=== PATIENT | male | born 1945 | race Caucasian/White ===

== ENCOUNTER 2017-05-21 16:29 | Outpatient (CLI) | payer MEDICARE ==
[~2017-05-21 16:29] MED LIST: Iopamidol 370 76% 100 ML VIAL ONE
--- NOTE | 2017-05-21 17:43 | CT ---
CT ANGIOGRAM NECK 05/21/17 COMPARISON: None. HISTORY: Carotid arterial disease seen on recent ultrasound examination. TECHNIQUE: Serial axial CT imaging is obtained at 1.25 mm intervals from the skull base through the lung apices with IV contrast using a CT angiogram protocol. Coronal and sagittal 3D reformatted imaging obtained. FINDINGS: Limited assessment of the brain parenchyma appears unremarkable. There is near complete opacification of the maxillary sinus on the right and scattered areas of mucosal thickening within the left maxill marcia sinus and imaged bilateral ethmoid air cells. The retroantral fat and parapharyngeal fat is clear bilaterally. The parotid and submandibular glands appear within normal limits. The tonsillar pillars, thyroid gland, cricoid cartilage, thyroid cartilage, level of the glottis, epi glottis and pre-epiglottic fat appear within normal limits. Anterior discectomy and fusion hardware is present at C5-6/C6-7. No lymphadenopathy is seen within the neck. There is a subcentimeter pleural based nodule within the right upper lobe anteriorly on image 1 measu ring 6-7 mm, incompletely imaged. There are mild central lobular and paraseptal emphysematous changes within the right lung apex. There is scattered atherosclerotic calcification of the aortic arch. A bovine arch is noted. No hemodynamically significant stenosis is seen at the origin of the left com mon carotid artery, the innominate artery, the right subclavian artery, the right common carotid carmelina ry, or the left subclavian artery. There is mild stenosis at the origin of the right vertebral artery with partially calcified plaque. T here is mild stenosis at the origin of the right vertebral artery on the basis of noncalcified plaque . Bilateral vertebral arteries appear grossly unremarkable otherwise. The left common carotid artery is grossly unremarkable in course and contour. There is severe stenosis approaching occlusion at the origin of the left internal carotid artery on t he basis of prominent partially calcified atherosclerotic plaque. The stenosis is difficult to measur e secondary to the degree of atherosclerotic plaque but is in the 90% range. The internal carotid art kary distal to this to the level of the skull base is markedly attenuated. The petrous and supraclinoi d segments of the left internal carotid artery are markedly attenuated as well. The critical stenosis approaching occlusion at the origin of the left internal carotid artery measure s at least 1.4 cm in length. The right common carotid artery is patent. The external carotid artery on the right appears unremarka ble. There is marked atherosclerotic calcified plaque at the origin of the left internal carotid artery. A t the level of the origin, there is at least 50-60% stenosis. Just beyond the origin of the internal carotid artery, on the basis of bulky markedly calcified plaque, there is a segment measuring 1.5 cm in length where there is critical stenosis approaching occlusion involving the proximal right ICA, be st seen on axial image 151 and sagittal image 32. The internal carotid artery on the right distal to this is patent. There is degenerative change involving the atlantoaxial interspace. There is no worrisome lytic or bl astic bone lesions. IMPRESSION: 1. There is severe atherosclerotic disease involving the proximal internal carotid arteries bila terally with proximal focal areas of critical stenosis approaching occlusion involving the origin of both the left and the right internal carotid artery. 2. 6-7 mm pulmonary nodule in right upper lobe. Followup CT examination of the chest is recommen ded for full assessment. Code T POS: [facility]
== END 2017-05-21 16:30 | disposition home or self-care (01) ==
LOC: CT 16:29
PROVIDERS: ATTEND Thoracic Surgery (Cardiothoracic Vascular Surgery)
DX: I77.9 Disorder of arteries and arterioles, unspecified (principal); I65.23 Occlusion and stenosis of bilateral carotid arteries; R91.1 Solitary pulmonary nodule
CPT/HCPCS: 70498

== ENCOUNTER 2017-06-09 05:24 | Inpatient (IN) | payer MEDICARE ==
[2017-06-09] MEDS ORDERED: Levofloxacin 500 mg/D5W 100 ml Premix Bag ONE (06:19)
[2017-06-09] MEDS ORDERED: Clindamycin/D5W 900 mg/50 ml Premix Bag ONE (06:19)
[2017-06-09] MEDS ORDERED: Fentanyl 250 MCG/5 ML VIAL ONE ×2 (06:30→07:20)
[2017-06-09] MEDS ORDERED: Nitroglycerin 50 MG/250 ML BOT 0 ML ONE (06:30)
[2017-06-09] MEDS ORDERED: Bupivacaine/Epinephrine 0.25% 30 ML VIAL ONE (06:34)
[2017-06-09] MEDS ORDERED: Heparin 5,000 UNITS/ML VIAL ONE (06:35)
[2017-06-09] MEDS ORDERED: Protamine Sulfate 50 MG/5 ML VIAL ONE (06:35)
[2017-06-09 06:43] LABS: #Basophils 0.1 thou/uL (0.0-0.2); #Eosinphils 0.3 thou/uL (0.0-0.7); #Lymphocytes 1.7 thou/uL (1.20-3.40); #Monocytes 0.7 thou/uL (0.11-0.59); #Neutrophils 3.4 thou/uL (1.40-6.50); %Eosinophils 4.8 % (0.0-10.0); %Lymphocytes 27.6 % (21.0-51.0); %Monocytes 11.3 % (0.0-10.0); %Neutrophils 55.4 % (42.0-75.0); Hemoglobin 16.5 g/dL (14.0-18.0); Mean Corpuscular HGB CONC 33.3 g/dL (32.0-36.0); Mean Platelet Volume 7.8 fL (7.4-10.4); Platelet Count 195 thou/uL (130-400); RBC Distribution Width 11.3 % (11.5-14.5); Red Blood Cell (RBC) Count 5.15 mill/uL (4.70-6.10); White Blood Cell (WBC) Count 6.2 thou/uL (4.8-10.8)
[2017-06-09 07:01] LABS: Anion Gap 14 mmol/L (10-20); BUN (Urea Nitrogen) 12 mg/dL (8.4-25.7); Calc. Creatinine Clearance 99 mL/min (70-130); Calcium 9.9 mg/dL (7.8-10.44); Carbon Dioxide 20 mmol/L (23-31); Chloride 108 mmol/L (98-107); Estimated GFR-MDRD 89; Glucose 109 mg/dL (83-110); Potassium 4.3 mmol/L (3.5-5.1); Sodium 138 mmol/L (136-145)
[2017-06-09] MEDS ORDERED: ePHEDrine/0.9% NaCl/PF SYRINGE 50 mg/10 ml ONE ×2 (08:29→17:10)
[2017-06-09] MEDS ORDERED: Phenylephrine HCL 10 MG/ML VIAL ONE (08:29)
[2017-06-09] MEDS ORDERED: Ondansetron HCl/PF 4 MG/2 ML Vial IVP PRN ×2 (10:12→10:30)
[2017-06-09] MEDS ORDERED: Promethazine HCl 25 MG/ML VIAL IM/IV PRN (10:12)
[2017-06-09] MEDS ORDERED: Nitroglycerin 50 MG/250 ML BOT 250 ML IVPB PRN (10:30)
[2017-06-09] MEDS ORDERED: HYDROcodone/Acetaminophen 5/325 mg Tablet PO PRN (10:30)
[2017-06-09] MEDS ORDERED: Acetaminophen 325 MG TAB PO PRN (10:30)
[2017-06-09] MEDS ORDERED: Fentanyl 100 MCG/2 ML VIAL SLOW IVP PRN ×2 (10:30)
[2017-06-09] MEDS ORDERED: Phenylephrine 10 MG/NS 250 ML 250 ML IVPB PRN (10:30)
[2017-06-09] MEDS ORDERED: Promethazine HCl 25 MG/ML VIAL IM PRN (10:30)
--- NOTE | 2017-06-09 10:40 | OP ---
DATE OF PROCEDURE: 06/09/2017 PREOPERATIVE DIAGNOSIS: Critical carotid stenosis. POSTOPERATIVE DIAGNOSIS: Critical carotid stenosis. PROCEDURE: Right carotid endarterectomy with bovine patch angioplasty. SURGEON: Dr. Sharma. ANESTHESIA: General. ESTIMATED BLOOD LOSS: Less than 100 mL. PROCEDURE IN DETAIL: After adequate anesthesia had been obtained, the patient was prepped and draped . Ultrasound had been used to localize the carotid bulb following which skin incision was made. Com mon internal and external carotid arteries were isolated. The patient was given 7500 units of hepari n with good ACT level, arteriotomy performed, and a 12-[place] shunt was placed. Endarterectomy was t hen performed. There was nice tapering distally and after removing and irrigating any loose debris, the bovine patch was secured with a running 6-0 Prolene suture. Prior to completing the suture line, shunt was removed, vessels back flushed, forward flushed and the area thoroughly irrigated again wit h heparinized saline. Suture line was completed, flow restored up the external and then internal car otid artery. Protamine was given to partially reverse the heparin and Surgicel was used on the sutur e line and after obtaining good hemostasis, the wound was irrigated and closed in layers.
[2017-06-09] MEDS: HYDROcodone/Acetaminophen 5/325 mg Tablet PO PRN ×3 (10:42→23:56)
[2017-06-09] MEDS: Sodium Chloride 0.9% 1,000 ML IV SCH (10:49)
[2017-06-09 10:57] VITALS: BMI 28.3
[2017-06-09] MEDS ORDERED: FLU VACC TS2017-18 (>65YR) 0.5 ML SYRINGE IM ONE (11:15)
[2017-06-09] MEDS: Clindamycin/D5W 900 MG in Premix Bag 1 BAG IVPB SCH ×3 (13:14→23:55)
[2017-06-09] MEDS ORDERED: Lidocaine 1% PF 5 ML VIAL ONE (17:10)
[2017-06-09] MEDS ORDERED: PHENYLEPHRINE-NS 100 MCG/ML 10 ML SYRINGE ONE (17:10)
[2017-06-09] MEDS ORDERED: Glycopyrrolate 0.2 MG/ML 5 ML SYRINGE ONE (17:10)
[2017-06-09] MEDS ORDERED: Propofol 200 MG/20 ML VIAL ONE (17:10)
[2017-06-09] MEDS ORDERED: Heparin 10,000 UNITS/ 10 ML VIAL ONE (17:10)
[2017-06-09] MEDS ORDERED: Dexamethasone 20 MG/5 ML VIAL ONE (17:10)
[2017-06-09] MEDS ORDERED: Ondansetron HCl/PF 4 MG/2 ML Vial ONE (17:10)
[2017-06-09] MEDS ORDERED: Tamsulosin HCl 0.4 MG CAP PO SCH (21:00)
[2017-06-10] MEDS: Clindamycin/D5W 900 MG in Premix Bag 1 BAG IVPB SCH (06:03)
[2017-06-10] MEDS: HYDROcodone/Acetaminophen 5/325 mg Tablet PO PRN (06:08)
[2017-06-10] MEDS: Sodium Chloride 0.9% 1,000 ML IV SCH (06:13)
--- NOTE | 2017-06-10 07:11 | DIS ---
HOSPITAL COURSE: The patient was admitted where he underwent elective right carotid endarterectomy. Postoperative course was uneventful. His vital signs were stable. His neck incision looked good. His neurologic exam was baseline. He will be discharged home today to resume all of his home medicat ions with no prescriptions. He will follow up with me in 2-3 weeks. He does need his left carotid t reated surgically and this will be scheduled when the patient desires. Discharge and followup instru ctions given.
[2017-06-10 07:22] VITALS: TEMP 97.7
[2017-06-10] MEDS ORDERED: Amlodipine 5 MG TAB PO SCH (09:00)
== END 2017-06-10 08:15 | disposition home or self-care (01) | DRG 39 ==
LOC: SURG A 05:24 → CCU 09:51
PROVIDERS: ADMIT Thoracic Surgery (Cardiothoracic Vascular Surgery); ATTEND Thoracic Surgery (Cardiothoracic Vascular Surgery)
PROC: 03CH0ZZ Extirpation of Matter from Right Common Carotid Artery, Open Approach (ICD-10-PCS; principal; 2017-06-09)
PROC: 03UH0KZ Supplement Right Common Carotid Artery with Nonautologous Tissue Substitute, Open Approach (ICD-10-PCS; 2017-06-09)
DX: I65.29 Occlusion and stenosis of unspecified carotid artery (principal); E78.5 Hyperlipidemia, unspecified; I10 Essential (primary) hypertension; I25.10 Atherosclerotic heart disease of native coronary artery without angina pectoris; F17.210 Nicotine dependence, cigarettes, uncomplicated
CPT/HCPCS: 36415; 80048; 85025; 93005; 93010; J1100; J1642; J1644; J1956; J2001; J2370; J2405; J2704; J2720; J3010; J3490

== ENCOUNTER 2017-07-13 08:49 | Inpatient (IN) | payer MEDICARE ==
[2017-07-13] MEDS ORDERED: Protamine Sulfate 50 MG/5 ML VIAL ONE ×3 (11:00→11:12)
[2017-07-13] MEDS ORDERED: Heparin 5,000 UNITS/ML VIAL ONE ×2 (11:00)
[2017-07-13] MEDS ORDERED: Midazolam HCl 2 mg/2 ml Vial ONE (11:04)
[2017-07-13] MEDS ORDERED: Fentanyl 250 MCG/5 ML VIAL ONE ×2 (11:04→11:41)
[2017-07-13] MEDS ORDERED: Nitroglycerin 50 MG/250 ML BOT 0 ML ONE (11:05)
[2017-07-13] MEDS ORDERED: PHENYLEPHRINE-NS 100 MCG/ML 10 ML SYRINGE ONE ×2 (11:06→15:47)
[2017-07-13] MEDS ORDERED: Levofloxacin 500 mg/D5W 100 ml Premix Bag ONE (11:08)
[2017-07-13] MEDS ORDERED: Clindamycin/D5W 900 mg/50 ml Premix Bag ONE (11:08)
[2017-07-13] MEDS ORDERED: Phenylephrine HCL 10 MG/ML VIAL ONE (11:09)
[2017-07-13] MEDS ORDERED: Bupivacaine/Epinephrine 0.25% 30 ML VIAL ONE (11:11)
[2017-07-13 11:17] LABS: #Basophils 0.1 thou/uL (0.0-0.2); #Eosinphils 0.3 thou/uL (0.0-0.7); #Lymphocytes 1.8 thou/uL (1.20-3.40); #Monocytes 0.6 thou/uL (0.11-0.59); #Neutrophils 4.5 thou/uL (1.40-6.50); %Basophils 0.9 % (0.0-1.0); %Eosinophils 4.4 % (0.0-10.0); %Lymphocytes 24.3 % (21.0-51.0); %Monocytes 8.1 % (0.0-10.0); %Neutrophils 62.3 % (42.0-75.0); Hemoglobin 16.4 g/dL (14.0-18.0); Mean Corpuscular HGB CONC 32.9 g/dL (32.0-36.0); Mean Corpuscular Hemoglobin 31.3 pg (27.0-31.0); Mean Corpuscular Volume 95.2 fl (80.0-94.0); Mean Platelet Volume 7.3 fL (7.4-10.4); Platelet Count 240 thou/uL (130-400); RBC Distribution Width 11.2 % (11.5-14.5); Red Blood Cell (RBC) Count 5.23 mill/uL (4.70-6.10); White Blood Cell (WBC) Count 7.2 thou/uL (4.8-10.8)
[2017-07-13 11:36] LABS: Anion Gap 14 mmol/L (10-20); BUN (Urea Nitrogen) 11 mg/dL (8.4-25.7); Calc. Creatinine Clearance 95 mL/min (70-130); Carbon Dioxide 23 mmol/L (23-31); Chloride 105 mmol/L (98-107); Estimated GFR-MDRD Greater than 90; Glucose 97 mg/dL (83-110); Potassium 4.8 mmol/L (3.5-5.1); Sodium 137 mmol/L (136-145)
--- NOTE | 2017-07-13 13:35 | OP ---
DATE OF PROCEDURE: 07/13/2017 PREOPERATIVE DIAGNOSIS: Critical left internal carotid artery stenosis. PROCEDURE: Left carotid endarterectomy with bovine patch angioplasty. SURGEON: Dr. Karl Sharma ANESTHESIA: General. ESTIMATED BLOOD LOSS: Less than 100. PROCEDURE IN DETAIL: After adequate anesthesia had been obtained, ultrasound was used to identify th e carotid bulb. Following prepping and draping, incision was made. Common internal and external car otid arteries were identified. Internal carotid artery was small as anticipated. After 7500 units o f heparin had circulated, clamps were applied, arteriotomy performed, and a 10-Lao shunt was place d. There was good back bleeding from the internal carotid artery. Endarterectomy was then performed with satisfactory tapering distally. Bovine patch was used to close the arteriotomy with a running 7-0 Prolene suture. Prior to completing the suture line, the shunt was removed, vessels back flushed and forward flushed and the lumen of the carotid irrigated thoroughly with heparin saline. Flow was then restored up the external and then internal carotid artery. Heparin was partially reversed with protamine and after obtaining good hemostasis, the wound was irrigated and closed in layers. The pa tient is to be taken to the recovery room in guarded condition.
[2017-07-13] MEDS ORDERED: Ondansetron HCl/PF 4 MG/2 ML Vial IVP PRN ×3 (13:51→15:31)
[2017-07-13] MEDS ORDERED: Promethazine HCl 25 MG/ML VIAL SLOW IVP PRN ×2 (13:51)
[2017-07-13] MEDS ORDERED: Promethazine HCl 25 MG/ML VIAL IM PRN ×2 (13:51)
[2017-07-13] MEDS ORDERED: Sodium Chloride 0.9% 1,000 ML IV SCH (15:31)
[2017-07-13] MEDS ORDERED: Fentanyl 100 MCG/2 ML VIAL SLOW IVP PRN (15:31)
[2017-07-13] MEDS ORDERED: Acetaminophen 325 MG TAB PO PRN (15:31)
[2017-07-13] MEDS ORDERED: hydrALAZINE 20 MG/ML VIAL SLOW IVP PRN (15:31)
[2017-07-13] MEDS ORDERED: HYDROcodone/Acetaminophen 5/325 mg Tablet PO PRN (15:31)
[2017-07-13] MEDS ORDERED: DOPamine 400 MG/D5W 250 ML 250 ML IVPB PRN (15:31)
[2017-07-13] MEDS ORDERED: niCARdipine HCl 25 MG in Sodium Chloride 0.9% 250 ML 240 ML IVPB PRN (15:31)
[2017-07-13 15:32] VITALS: BMI 25.9
[2017-07-13] MEDS ORDERED: ePHEDrine/0.9% NaCl/PF SYRINGE 50 mg/10 ml ONE (15:47)
[2017-07-13] MEDS ORDERED: PROPOFOL 200 MG/20 ML VIAL ONE (15:47)
[2017-07-13] MEDS ORDERED: Lidocaine 1% PF 5 ML VIAL ONE (15:47)
[2017-07-13] MEDS ORDERED: Ondansetron HCl/PF 4 MG/2 ML Vial ONE (15:47)
[2017-07-13] MEDS ORDERED: Heparin 10,000 UNITS/ 10 ML VIAL ONE (15:47)
[2017-07-13] MEDS ORDERED: Glycopyrrolate 0.2 MG/ML 5 ML SYRINGE ONE (15:47)
[2017-07-13] MEDS: Amlodipine 5 MG TAB PO SCH (20:20)
[2017-07-13] MEDS: HYDROcodone/Acetaminophen 5/325 mg Tablet PO PRN (20:20)
[2017-07-13 20:21] VITALS: BP 124/58
[2017-07-13] MEDS ORDERED: Tamsulosin HCl 0.4 MG CAP PO SCH (21:00)
[2017-07-14] MEDS: HYDROcodone/Acetaminophen 5/325 mg Tablet PO PRN ×3 (00:11→08:41)
--- NOTE | 2017-07-14 06:22 | DIS ---
HOSPITAL COURSE: The patient was admitted and underwent an elective left carotid endarterectomy. Hi s internal carotid was small as anticipated. Postoperatively, he had some mild neck swelling, but ne urologically was intact. He required placement of a Valles catheter on the night of surgery with an 8 00 mL residual. He has a history of being discharged after a previous carotid endarterectomy, requir ing a Valles catheter placement the night of admission with a reported 3000 mL urine output according to his daughter. In any event, he has been seen by Dr. Snow and is to be scheduled for prostate surgery at some point in the future. He will be discharged home with his Valles catheter and I have asked him to follow up with Dr. Snow next week and to continue his medications from home includi ng his Flomax. Discharge and follow up instructions have been given.
[2017-07-14] MEDS: Amlodipine 5 MG TAB PO SCH (08:38)
[2017-07-14] MEDS ORDERED: Clopidogrel Bisulfate 75 MG TAB PO SCH (09:00)
[2017-07-14] MEDS ORDERED: Aspirin 325 mg Enteric Coated Tablet PO SCH (09:00)
[2017-07-14] MEDS ORDERED: Tamsulosin HCl 0.4 MG CAP PO SCH (09:00)
[2017-07-14] MEDS ORDERED: Finasteride 5 MG TAB PO SCH (09:00)
[2017-07-14 09:13] VITALS: TEMP 97.9
== END 2017-07-14 09:00 | disposition home or self-care (01) | DRG 39 ==
LOC: SURG A 10:50 → CCU 15:11
PROVIDERS: ADMIT Thoracic Surgery (Cardiothoracic Vascular Surgery); ATTEND Thoracic Surgery (Cardiothoracic Vascular Surgery)
PROC: 03CL0ZZ Extirpation of Matter from Left Internal Carotid Artery, Open Approach (ICD-10-PCS; principal; 2017-07-13)
PROC: 03UL0KZ Supplement Left Internal Carotid Artery with Nonautologous Tissue Substitute, Open Approach (ICD-10-PCS; 2017-07-13)
DX: I65.22 Occlusion and stenosis of left carotid artery (principal); E78.5 Hyperlipidemia, unspecified; I10 Essential (primary) hypertension; I25.10 Atherosclerotic heart disease of native coronary artery without angina pectoris; F17.210 Nicotine dependence, cigarettes, uncomplicated; Z88.1 Allergy status to other antibiotic agents; Z88.0 Allergy status to penicillin; Z88.2 Allergy status to sulfonamides; Z79.02 Long term (current) use of antithrombotics/antiplatelets; Z79.82 Long term (current) use of aspirin; Z79.899 Other long term (current) drug therapy
CPT/HCPCS: 36415; 80048; 85025; J1642; J1644; J1956; J2001; J2250; J2370; J2405; J2704; J2720; J3010; J3490

== ENCOUNTER 2017-08-17 13:40 | Observation (INO) | payer MEDICARE ==
[2017-08-17 14:12] LABS: #Eosinphils 0.1 thou/uL (0.0-0.7); #Lymphocytes 1.2 thou/uL (1.20-3.40); #Monocytes 0.5 thou/uL (0.11-0.59); #Neutrophils 3.6 thou/uL (1.40-6.50); %Basophils 0.9 % (0.0-1.0); %Eosinophils 2.2 % (0.0-10.0); %Monocytes 8.4 % (0.0-10.0); %Neutrophils 66.5 % (42.0-75.0); Hemoglobin 14.3 g/dL (14.0-18.0); Mean Corpuscular HGB CONC 34.6 g/dL (32.0-36.0); Mean Corpuscular Hemoglobin 31.9 pg (27.0-31.0); Mean Corpuscular Volume 92.1 fl (80.0-94.0); Mean Platelet Volume 6.7 fL (7.4-10.4); Platelet Count 246 thou/uL (130-400); RBC Distribution Width 11.3 % (11.5-14.5); Red Blood Cell (RBC) Count 4.48 mill/uL (4.70-6.10); White Blood Cell (WBC) Count 5.4 thou/uL (4.8-10.8)
[2017-08-17 14:34] LABS: ALT (SGPT) 12 U/L (8-55); AST (SGOT) 12 U/L (5-34); Albumin 3.9 g/dL (3.4-4.8); Alkaline Phosphatase 57 U/L (40-150); Anion Gap 7 mmol/L (10-20); BUN (Urea Nitrogen) 9 mg/dL (8.4-25.7); Bilirubin, Total 0.4 mg/dL (0.2-1.2); CK (CPK) 64 U/L (30-200); Calc. Creatinine Clearance 0 mL/min (70-130); Calcium 9.4 mg/dL (7.8-10.44); Carbon Dioxide 26 mmol/L (23-31); Chloride 107 mmol/L (98-107); Estimated GFR-MDRD Greater than 90; Globulin 2.6 g/dL (2.4-3.5); Glucose 170 mg/dL (83-110); Potassium 3.6 mmol/L (3.5-5.1); Protein, Total 6.5 g/dL (5.8-8.1); Sodium 136 mmol/L (136-145)
[2017-08-17 14:43] LABS: CKMB 1.3 ng/mL (0-6.6); Troponin I Less than 0.010 ng/mL (< 0.028)
[2017-08-17 15:00] LABS: Magnesium 2.2 mg/dL (1.6-2.6)
--- NOTE | 2017-08-17 15:17 | RAD ---
CHEST 1 VIEW: HISTORY: Chest pain. FINDINGS: Cardiac silhouette and pulmonary vasculature are unremarkable. Mediastinum is midline. There is no confluent airspace consolidation or evidence of pneumothorax. Postoperative changes cervical spine. IMPRESSION: No active cardiopulmonary abnormalities are demonstrated. POS: [facility]
[2017-08-17 18:11] LABS: Bilirubin Negative (Negative); Blood, Urine Large (Negative); Clarity CLOUDY (Clear); Glucose, Urine (Dipstick) Negative (Negative); Leukocyte Moderate (Negative); Nitrite Negative (Negative); Protein, Urine (Dipstick) 30 mg/dL (Neg-Trace); Specific Gravity, Urine 1.009 (1.002-1.036); Urobilinogen 0.2 mg/dL (0.2-1.0)
[2017-08-17 18:12] LABS: Bacteria/HPF None Seen HPF (None Seen); Hyaline Casts/LPF 0-3 HYALINE CAST LPF (0-3 Hyaline); Squamous Epithelial 0-3 HPF (0-3)
[2017-08-17 18:25] LABS: RBC/HPF GREATER THAN 50-TNTC HPF (0-3); Yeast-All Forms None Seen HPF (None Seen)
[2017-08-17 19:04] LABS: Troponin I Less than 0.010 ng/mL (< 0.028)
[2017-08-17] MEDS ORDERED: HYDROcodone/Acetaminophen 10/325 mg Tablet ONE (19:08)
[2017-08-17] MEDS ORDERED: Acetaminophen 325 MG TAB PO PRN (19:53)
[2017-08-17] MEDS ORDERED: Nitroglycerin 0.4 MG TAB (25 Tab Bottle) PO PRN (19:53)
[2017-08-17] MEDS ORDERED: Acetaminophen 650 MG Suppository PR PRN (19:53)
[2017-08-17] MEDS ORDERED: Ondansetron ODT 4 MG TAB PO PRN (19:53)
[2017-08-17] MEDS ORDERED: Ondansetron HCl/PF 4 MG/2 ML Vial IVP PRN (19:53)
[2017-08-17] MEDS ORDERED: Bisacodyl 5 MG TAB PO PRN (19:53)
[2017-08-17] MEDS ORDERED: Senokot 8.6 MG TAB PO PRN (19:53)
[2017-08-17 20:00] VITALS: BMI 25.8
[2017-08-17] MEDS ORDERED: hydrALAZINE 20 MG/ML VIAL SLOW IVP PRN (20:20)
[2017-08-17] MEDS ORDERED: Amlodipine 5 MG TAB PO SCH (21:00)
[2017-08-17] MEDS ORDERED: Rosuvastatin 10 MG TAB PO SCH (21:00)
[2017-08-17] MEDS ORDERED: Vancomycin HCl 1.25 GM in Sodium Chloride 0.9% 250 ML 250 ML IVPB SCH (21:00)
[2017-08-17] MEDS: Docusate 100 MG CAP PO SCH (21:36)
[2017-08-17] MEDS: Famotidine 20 MG TAB PO SCH (21:37)
[2017-08-17 22:12] LABS: Troponin I Less than 0.010 ng/mL (< 0.028)
--- NOTE | 2017-08-18 03:11 | HP ---
PRIMARY CARE PHYSICIAN: Sony Mclain M.D. PRIMARY SURVEYOR HYDROGRAPHIC: Dr. Lyn. CHIEF COMPLAINT: Severe dyspnea and feeling sense of impending doom. HISTORY OF PRESENT ILLNESS: This is a 72-year-old white male with a known history of coronary artery disease with previous stents and peripheral vascular disease with some bilateral carotid endarterect omies in the last few months and benign prostatic hyperplasia with a TURP done 2 weeks ago. Patient reports he has felt kind of bad ever since the TURP, he stated that he has had nausea, dry mouth, con stipation, and felt bad every time he would take his Ditropan, which he took 3 times a day. Patient also had some episodes where he would get. He was started to get burning, stinging, and tingling in his bilateral feet up to the knees this would be fall. He would then check his blood pressure would be high. He would try and take some amlodipine, recheck it and would still be high, this will make h im very worried. He was started feeling worse and worse and get severe dyspnea. This happened again this morning and he had a sense of an impending doom. No actual chest pain but definitely some ches t tightness, so he came into the emergency room. In the ambulance, he did have elevated blood pressu res as well as in the emergency room here. This improved with some 1 or 2 nitro paste to his chest. Blood pressure went from 191 to 150 systolic. Patient is accompanied to the emergency room by his Rin osorio who is a p.r.n. nurse in [place]. PAST MEDICAL HISTORY: 1. Hypertension. 2. Hypercholesterolemia. 3. Benign prostatic hyperplasia. 4. Childhood asthma. 5. Coronary artery disease. 6. Peripheral vascular disease with bilateral carotid stenosis. PAST SURGICAL HISTORY: 1. Carotid stents x2 in 2015. 2. Bilateral carotid endarterectomy. 3. TURP. 4. Right shoulder surgery. 5. Spinal surgery of the cervical and lumbar spine. PSYCHIATRIC HISTORY: No previous psychiatric history. He has never had anxiety or panic attacks in the past. SOCIAL HISTORY: No alcohol or illicit drug use. He does report smoking 1 pack per day and that is a bout 2-3 times a day. ALLERGIES: 1. PENICILLIN causes lip swelling and rash. 2. SULFA. 3. TETRACYCLINE causes a rash and swelling. CURRENT MEDICATIONS: 1. Amlodipine 5 mg daily. 2. Coenzyme Q10 of 100 mg daily. 3. Clopidogrel 75 mg daily. 4. Crestor 10 mg daily. 5. Flomax 0.4 mg daily. 6. Aspirin 81 mg daily. 7. [place] as needed. 8. Oxybutynin 5 mg 3 times a day. FAMILY HISTORY: Father at 45 years old with heart disease. Mother at 70 years old diagnosed with cancer. REVIEW OF SYSTEMS: Constitutional: No fevers or chills. Eyes: No double vision or blurred vision. ENT: He has had some congestion, drainage, and sore throat ever since his TURP surgery. Cardiovas cular: See HPI. Pulmonary: Intermittent cough, dry, and shortness of breath as per HPI, none curre ntly. Gastrointestinal: No abdominal pain. He had some nausea every time he takes the Ditropan, bu t no vomiting, no diarrhea. He has had significant constipation and had a large very hard bowel move ment this morning. No blood or mucus. Genitourinary: He has a Valles in place. His daughter has be en flushing this and has occluded previously, but not today. It has been flowing well; however, sinc e yesterday, it started to have a pink-tinged today, it has some blood in it. No clots visible. Mus culoskeletal: He has had some generalized weakness, but no focal musculoskeletal complaints. Skin: No rashes or lesions noted. Neurologic: See HPI. No current symptoms. PHYSICAL EXAMINATION: VITAL SIGNS: Blood pressure 169/71, pulse 62, respirations 15, O2 sat 96% on room air, temperature 9 8.0. GENERAL: This is a well-developed, well-nourished, elderly white male in no acute distress. HEENT: Pupils equal, round, and react to light. Oropharynx clear without lesions, erythema, or exud ate. NECK: Supple, no lymphadenopathy, no thyroid nodules or enlargement, no JVD. HEART: Regular rate and rhythm. Mildly bradycardic. No murmurs, rubs, or gallops. LUNGS: Clear to auscultation bilaterally. No wheezes, crackles, or rhonchi. ABDOMEN: Soft, nontender to palpation. Normoactive bowel sounds. No hepatosplenomegaly or masses. EXTREMITIES: No clubbing, cyanosis, or edema. SKIN: No rashes or lesions noted. NEUROLOGIC: Patient has some generalized weakness, but has intact and equal strength in all extremit ies and 4.5-5/5 strength in all extremities. Deep tendon reflexes 2+ in all extremities. He has no facial droop. Cranial nerves are intact and equal bilaterally. PSYCHIATRIC: Patient has appeared mildly anxious, otherwise alert and oriented x3 with normal insigh t and judgment and normal memory. LABORATORY DATA: CBC within normal limits. Complete metabolic panel without significant abnormaliti es. Magnesium normal. Cardiac marker set negative x2. Lipase negative. Urinalysis shows large blo od, greater than 50 too numerous to count red blood cells, only 11-20 white blood cells, and no bacte barbara. I did review the EKG done in the emergency room, it showed normal sinus rhythm with right axis deviation, no ST segment changes or evidence of acute ischemic change. Chest x-ray: I did review th e chest x-ray done in the emergency room along with the radiologist's report that shows no acute acti ve intrathoracic process. ASSESSMENT AND PLAN: 1. Acute dyspneic episode associated with hypertension. The patient explained he has some tingling of the feet followed by what sounds like a panic attack. He has never had any anxiety before, but pe rhaps of 3 surgeries in the last few months along with manifestations he is on, has lowered in his th reshold and caused some anxiety. Concern also for cardiac event given his history of coronary artery disease with stent, we will put patient in observation in the hospital overnight. We will get a ser ial cardiac markers and observe him on telemetry and we will consult his blindstitch machine operator, Dr. Lyn in the morning to see if he needs further investigation. We will go ahead and hold his Ditropan for now and he seems to have more symptoms when he takes this medication. 2. Hypertensive emergency resolved with nitroglycerin. This may be actually related to his anxiety. Currently his blood pressure is better controlled, we will resume his home blood pressure medicatio ns. I will give him p.r.n. hydralazine as needed along with nitro paste. 3. Benign prostatic hyperplasia, status post transurethral resection of the prostate with indwelling Valles. We will have the nurse irrigate the Valles and will observe the current hematuria and make cline re it does not get worse, it is likely related to being on blood thinners and having had the recent s urgery. We will need to make sure that he does not have worsening bleeding. If he does, then we daniela l need to get a Urology to see him. 4. Gastrointestinal prophylaxis. Put the patient on Pepcid twice a day. 5. Deep venous thrombosis prophylaxis. We will put patient on sequential compression devices while in bed. CODE STATUS: I discussed with the patient, he is a FULL CODE. Should he be incapacitated his daught er will be his medical decision maker. Her name is Rin Meza.
[2017-08-18 05:05] LABS: #Basophils 0.1 thou/uL (0.0-0.2); #Eosinphils 0.3 thou/uL (0.0-0.7); #Lymphocytes 1.5 thou/uL (1.20-3.40); #Monocytes 0.5 thou/uL (0.11-0.59); #Neutrophils 2.7 thou/uL (1.40-6.50); %Basophils 1.1 % (0.0-1.0); %Lymphocytes 30.3 % (21.0-51.0); %Monocytes 9.8 % (0.0-10.0); %Neutrophils 53.9 % (42.0-75.0); Hemoglobin 14.1 g/dL (14.0-18.0); Mean Corpuscular HGB CONC 33.4 g/dL (32.0-36.0); Mean Corpuscular Hemoglobin 31.2 pg (27.0-31.0); Mean Corpuscular Volume 93.2 fl (80.0-94.0); Platelet Count 241 thou/uL (130-400); RBC Distribution Width 11.4 % (11.5-14.5); Red Blood Cell (RBC) Count 4.52 mill/uL (4.70-6.10); White Blood Cell (WBC) Count 5.1 thou/uL (4.8-10.8)
[2017-08-18 05:11] LABS: Anion Gap 11 mmol/L (10-20); BUN (Urea Nitrogen) 7 mg/dL (8.4-25.7); Calc. Creatinine Clearance 107 mL/min (70-130); Calcium 9.1 mg/dL (7.8-10.44); Carbon Dioxide 24 mmol/L (23-31); Chloride 109 mmol/L (98-107); Estimated GFR-MDRD Greater than 90; Glucose 92 mg/dL (83-110); Potassium 3.9 mmol/L (3.5-5.1); Sodium 140 mmol/L (136-145)
[2017-08-18] MEDS ORDERED: HYDROcodone/Acetaminophen 10/325 mg Tablet PO PRN ×2 (08:43→09:09)
[2017-08-18] MEDS: Docusate 100 MG CAP PO SCH (08:47)
[2017-08-18] MEDS: Famotidine 20 MG TAB PO SCH (08:48)
[2017-08-18] MEDS ORDERED: Amlodipine 5 MG TAB PO SCH (09:00)
[2017-08-18] MEDS ORDERED: Clopidogrel Bisulfate 75 MG TAB PO SCH (09:00)
--- NOTE | 2017-08-18 09:11 | PDOC.PN ---
- Subjective Encounter Start Date: 08/18/17 Encounter Start Time: 10:30 Subjective: Patient feeling much better. Has had a couple of self limited episodes -: of feet tingling over night, resolved with repositioning. No more dyspneic -: episodes. No chest pain. No more anxiety episodes. - Objective Resuscitation Status: Resuscitation Status FULL:Full Resuscitation MAR Reviewed: Yes Vital Signs & Weight: Vital Signs (12 hours) Temp Pulse Resp BP Pulse Ox 08/18/17 08:48 59 L 08/18/17 08:00 97.7 F 59 L 20 08/18/17 07:17 97.7 F 59 L 20 159/74 H 95 08/18/17 04:15 98.2 F 60 18 165/80 H 97 08/17/17 23:07 98.6 F 55 L 18 135/66 96 08/17/17 21:37 62 Weight Weight 185 lb 3 oz I&O: 08/17/17 08/18/17 08/19/17 06:59 06:59 06:59 Intake Total 800 Output Total 1875 Balance -1075 Result Diagrams: 08/18/17 04:16 08/18/17 04:16 Phys Exam - Physical Examination Constitutional: NAD HEENT: moist MMs Respiratory: no wheezing, no rales, no rhonchi Cardiovascular: RRR, no significant murmur Gastrointestinal: soft, non-tender, positive bowel sounds Musculoskeletal: no edema, pulses present Neurological: non-focal, normal sensation, moves all 4 limbs Psychiatric: normal affect, A&O x 3 Dx/Plan (1) Acute dyspnea Code(s): R06.00 - DYSPNEA, UNSPECIFIED Status: Resolved (2) Hypertensive emergency Code(s): I16.1 - HYPERTENSIVE EMERGENCY Status: Resolved (3) Hypertension Code(s): I10 - ESSENTIAL (PRIMARY) HYPERTENSION Status: Chronic Qualifiers: Hypertension type: essential hypertension Qualified Code(s): I10 - Essential (primary) hypertension Comment: Running a bit high this AM, bradycardic so will add hydralazine (4) S/P TURP Code(s): Z90.79 - ACQUIRED ABSENCE OF OTHER GENITAL ORGAN(S) Status: Acute (5) CAD (coronary artery disease) Code(s): I25.10 - ATHSCL HEART DISEASE OF [place] CORONARY ARTERY W/O ANG PCTRS Status: Chronic Qualifiers: Coronary Disease-Associated Artery/Lesion type: unga artery Comment: Dr. Lyn consulted, cardiac markers neg x3 (6) Hyperlipidemia Code(s): E78.5 - HYPERLIPIDEMIA, UNSPECIFIED Status: Chronic - Plan cont current plan of care Patient adamant to return home if Dr. Lyn can't come by noon. He -: feels much better. Cardiac markers negative. He seems to be having -: anxiety attacks. Has appointment with Dr. Lyn next week and urology -: in 2 days. Ok to d/c home with close followup. * . - Discharge Day Encounter end time: 10:40
[2017-08-18] MEDS: hydrALAZINE 25 MG TAB PO SCH ×2 (10:23→10:57)
[2017-08-18 11:42] VITALS: BP 167/73; TEMP 97.1
--- NOTE | 2017-08-18 14:55 | DIS ---
PRIMARY CARE PHYSICIAN: Dr. Sony Mclain. PRIMARY INDUSTRIAL HYGIENIST: Dr. Lyn. REASON FOR ADMISSION: Severe dyspnea and sense of impending doom. DIAGNOSES AT DISCHARGE: 1. Anxiety attack. 2. Hypertensive emergency, resolved. 3. Hypertension. 4. Status post transurethral resection of the prostate. 5. Coronary artery disease. 6. Hyperlipidemia. PROCEDURES: None. CONSULTATIONS: None. SUMMARY OF HOSPITAL COURSE: This is a 72-year-old white male with known history of coronary artery d isease with previous stent several years ago, who in the last few months, has had bilateral carotid e ndarterectomies, and then 2 weeks ago, a TURP done. He had episodes at home of feet tingling followe d by severe dyspnea, anxiety, and hypertension. Eventually, he came into the emergency room. He had some elevated blood pressures in the ambulance that resolved with nitro paste. The patient had no c hanges in his EKG and he had negative cardiac markers. He was observed overnight on telemetry withou t any arrhythmias. His cardiac marker sets were negative x3. In the morning, he felt much better. He and his daughter, Rin, thought he was probably having anxiety symptoms, they were fed by him gail cking his blood pressure and realizing it is high and getting worried about that. I did start him on some hydralazine 3 times a day to try and help with his elevated blood pressures and gave him reassu jann that moderately elevated blood pressures in the 160s to 180s is not acutely dangerous that he j ust needs to take his medicines. Patient was eager to go home the next day after admission. Initial ly, Dr. Lyn was consulted; however, patient stated he would like to go home if Dr. Lyn could no t see him by noon since Dr. Lyn was in cath and patient had ruled out and I discharged him home to follow up with Dr. Lyn at his scheduled appointment next week. Of note, patient did have some he maturia during his hospitalization. He has had this on and off since his TURP. He has a followup ap pointment with his urologist in 2 days and his Valles was cleaned out in the hospital. He did not hav e any clogging and it was flowing well. DISCHARGE MANAGEMENT: Discharged home. Follow up with Dr. Lyn and the urologist as scheduled. ACTIVITY: As tolerated. DIET: Healthy heart diet. Continue Valles care at home. DISCHARGE MEDICATIONS: Resume all home medications. 1. Amlodipine 5 mg daily. 2. Aspirin 81 mg daily. 3. Clopidogrel 75 mg daily. 4. [place] 10/325 as needed for pain. 5. Crestor 10 mg daily. 6. Tamsulosin 0.4 mg daily. 7. Coenzyme Q10 100 mg daily. 8. Hydralazine 25 mg 3 times a day, 90 tablets dispensed. 9. The patient is to stop his Ditropan, which seemed to be causing a lot of dry mouth, constipation, and worsening of anxiety symptoms.
[2017-08-18] MEDS ORDERED: hydrALAZINE 25 MG TAB PO SCH (15:00)
[2017-08-18] MEDS ORDERED: Tamsulosin HCl 0.4 MG CAP PO SCH (21:00)
[2017-08-19] MEDS ORDERED: Ubidecarenone 50 MG CAP PO SCH (09:00)
== END 2017-08-18 12:26 | disposition home or self-care (01) ==
LOC: ERS 13:40 → 2SW 19:13
PROVIDERS: ADMIT Emergency Medicine; ATTEND Emergency Medicine
DX: R06.00 Dyspnea, unspecified (principal); I16.1 Hypertensive emergency; E78.5 Hyperlipidemia, unspecified; E78.00 Pure hypercholesterolemia, unspecified; F41.9 Anxiety disorder, unspecified; I25.10 Atherosclerotic heart disease of native coronary artery without angina pectoris; I73.9 Peripheral vascular disease, unspecified; I65.23 Occlusion and stenosis of bilateral carotid arteries; F17.210 Nicotine dependence, cigarettes, uncomplicated; N40.0 Benign prostatic hyperplasia without lower urinary tract symptoms; Z79.02 Long term (current) use of antithrombotics/antiplatelets; Z79.82 Long term (current) use of aspirin; Z79.899 Other long term (current) drug therapy; Z90.79 Acquired absence of other genital organ(s)
CPT/HCPCS: 71045; 80048; 80053; 82550; 82553; 83690; 83735; 84484 ×2; 85025 ×2; 87077; 87086; 87186; 93005; 97139 ×2; 99285; G0378; 36415; 81003; 81015; J3370; J7050

== ENCOUNTER 2018-02-25 01:02 | Observation (INO) | payer MEDICARE ==
[2018-02-25 02:04] LABS: #Eosinphils 0.2 thou/uL (0.0-0.7); #Lymphocytes 1.8 thou/uL (1.20-3.40); #Monocytes 0.6 thou/uL (0.11-0.59); #Neutrophils 2.2 thou/uL (1.40-6.50); %Basophils 0.8 % (0.0-1.0); %Eosinophils 4.6 % (0.0-10.0); %Lymphocytes 37.1 % (21.0-51.0); %Monocytes 11.6 % (0.0-10.0); %Neutrophils 45.9 % (42.0-75.0); Hemoglobin 14.6 g/dL (14.0-18.0); Mean Corpuscular HGB CONC 34.2 g/dL (32.0-36.0); Mean Corpuscular Hemoglobin 31.6 pg (27.0-31.0); Mean Corpuscular Volume 92.4 fL (78.0-98.0); Mean Platelet Volume 7.7 fL (7.4-10.4); Platelet Count 208 thou/uL (130-400); RBC Distribution Width 11.2 % (11.5-14.5); Red Blood Cell (RBC) Count 4.63 mill/uL (4.70-6.10); White Blood Cell (WBC) Count 4.8 thou/uL (4.8-10.8)
[2018-02-25 02:31] LABS: ALT (SGPT) 16 U/L (8-55); AST (SGOT) 16 U/L (5-34); Albumin 4.2 g/dL (3.4-4.8); Alkaline Phosphatase 52 U/L (40-150); Anion Gap 12 mmol/L (10-20); BUN (Urea Nitrogen) 14 mg/dL (8.4-25.7); Bilirubin, Total 0.4 mg/dL (0.2-1.2); Calc. Creatinine Clearance 0 mL/min (70-130); Calcium 9.5 mg/dL (7.8-10.44); Carbon Dioxide 24 mmol/L (23-31); Chloride 107 mmol/L (98-107); Estimated GFR-MDRD 84; Globulin 2.4 g/dL (2.4-3.5); Glucose 102 mg/dL (83-110); Lipase 12 U/L (8-78); Magnesium 2.6 mg/dL (1.6-2.6); Potassium 3.6 mmol/L (3.5-5.1); Protein, Total 6.6 g/dL (5.8-8.1); Sodium 139 mmol/L (136-145)
[2018-02-25 02:35] LABS: CKMB 1.4 ng/mL (0-6.6); Troponin I Less than 0.010 ng/mL (< 0.028)
[2018-02-25] MEDS ORDERED: Cyclobenzaprine 10 MG TAB ONE (02:40)
[2018-02-25] MEDS ORDERED: Nitroglycerin 2% Ointment 1 INCH/1 GM Packet ONE (02:40)
[2018-02-25 06:12] LABS: Troponin I Less than 0.010 ng/mL (< 0.028)
--- NOTE | 2018-02-25 07:51 | RAD ---
SINGLE VIEW OF THE CHEST: COMPARISON: 08/17/2017. HISTORY: Orthopnea for 4-5 days. Chest pain. FINDINGS: Single view of the chest shows a normal sized cardiomediastinal silhouette. There is no evidence of c onsolidation, mass, or pleural effusion. Degenerative changes are seen in the spine. Hardware is see n in the cervical spine. IMPRESSION: No evidence of acute cardiopulmonary disease. POS: [facility]
[2018-02-25 09:15] LABS: Troponin I Less than 0.010 ng/mL (< 0.028)
[2018-02-25] MEDS ORDERED: Acetaminophen 500 MG TAB ONE (10:35)
[2018-02-25] MEDS ORDERED: HYDROcodone/Acetaminophen 5/325 mg Tablet ONE (11:12)
[2018-02-25] MEDS ORDERED: Ondansetron ODT 4 MG TAB PO PRN (12:01)
[2018-02-25] MEDS ORDERED: Ondansetron PF 4 MG/2 ML Vial IVP PRN (12:01)
[2018-02-25] MEDS ORDERED: Acetaminophen 325 MG TAB PO PRN (12:01)
[2018-02-25] MEDS ORDERED: ISOVUE-370 76%-LOCM 1 ML ONE (13:18)
--- NOTE | 2018-02-25 13:24 | CT ---
CTA CHEST AND CTA ABDOMEN WITH CONTRAST: Date: 02/25/18 HISTORY: Coronary artery disease and stent. Chest pain. Tightness in neck, shoulder, and arm. Evaluate for aor tic dissection. TECHNIQUE: Multiple contiguous axial images were obtained in a CTA of the chest and abdomen with contrast. 3D sa gittal and coronal MIP reformats were performed. FINDINGS: Emphysematous changes are seen in the lung apices. No focal infiltrates or suspicious pulmonary nodul es are seen. No pneumothorax or pleural effusions are present. Atelectasis is seen in both lung bases . The heart is normal in size without focal cardiac abnormality. Calcifications are seen in the coronal arteries and aorta. No hilar or mediastinal lymphadenopathy are seen. The liver, gallbladder, kidneys, adrenal glands, spleen, and pancreas are unremarkable. No free air, free fluid, or stranding changes are seen in the abdomen. The visualized large and small bowel are un remarkable. No abdominal adenopathy is seen. The thoracic aorta is normal in caliber without evidence of dissection. Moderate atherosclerotic dise ase is seen in the descending thoracic aorta which continues into the upper abdominal aorta. There is a focal area of ectasia of the infrarenal aorta just above the bifurcation where it measures 2.9 cm in greatest dimension. Moderate diffuse atherosclerotic disease is seen within the distal aorta and c ommon iliac arteries. The celiac trunk, SMA, and [place] are patent. No significant atherosclerotic disease is seen in the mese nteric vessels. A single renal artery is seen on each side without significant atherosclerotic diseas e. IMPRESSION: 1. No evidence of aortic dissection. 2. 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 3. Bibasilar atelectasis. POS: [facility]
--- NOTE | 2018-02-25 13:41 | ULT ---
RIGHT UPPER QUADRANT ULTRASOUND: Date: 02/25/18 HISTORY: Chest pain. Right upper quadrant pain. FINDINGS: The liver demonstrates homogeneous echotexture without focal mass or intrahepatic ductal dilatation. No gallstones, gallbladder wall thickening, or pericholecystic fluid is seen. The common duct measure s 5.0 mm in diameter. The right kidney and visualized portions of the pancreas are unremarkable. No f ree fluid is identified in [place]'s pouch. IMPRESSION: No significant abnormalities. POS: [facility]
[2018-02-25] MEDS: Nicotine 21 MG PATCH TD SCH (16:17)
[2018-02-25 17:02] VITALS: BMI 25.7
[2018-02-25] MEDS ORDERED: Enoxaparin Sodium 80 MG/0.8 ML SYRINGE SC SCH (18:00)
[2018-02-25] MEDS ORDERED: Communication Order-Pharmacy FS SCH (18:00)
[2018-02-25] MEDS: Nitroglycerin 2% Ointment 1 INCH/1 GM Packet TOP SCH (18:13)
[2018-02-25] MEDS: HYDROcodone/Acetaminophen 5/325 mg Tablet PO PRN (19:44)
[2018-02-25] MEDS: Famotidine 20 MG TAB PO SCH (20:21)
[2018-02-25] MEDS ORDERED: HYDROcodone/Acetaminophen 10/325 mg Tablet PO PRN (21:38)
[2018-02-25] MEDS ORDERED: Amlodipine 5 MG TAB PO SCH (22:15)
[2018-02-25] MEDS ORDERED: Rosuvastatin 10 MG TAB PO SCH (22:15)
[2018-02-26] MEDS: Nitroglycerin 2% Ointment 1 INCH/1 GM Packet TOP SCH ×2 (01:08→08:44)
--- NOTE | 2018-02-26 02:54 | CON ---
DATE OF CONSULTATION: REASON FOR ADMISSION: Unstable angina. HISTORY OF PRESENT ILLNESS: Mr. Horn is a 73-year-old gentleman with a history of vascular disease and coronary artery disease, admitted with unstable angina. Mr. Horn has been having increasing amounts of pressure in his chest over the last few days, finally culminating in a resting chest pressure in his chest and also pain in the posterior neck. He took nitroglycerin, he called for an ambulance and he got additional nitroglycerin. He still has a little mild discomfort. His cardiac enzymes were negative, but this patient did have prolonged episodes of pressure in his chest. PAST MEDICAL HISTORY: He has a history of coronary artery disease. He underwent percutaneous therapy, calcified right coronary artery stenosis and at 2015, he had diffuse disease in the circumflex, but it was a small vessel with diffuse atherosclerosis and the LAD had a 30% mid LAD lesion, the right coronary had an 80% lesion, 30% to 40% mid and 80% more distal. After discussion that the possibility of a difficult procedure due to the calcium and due to the percutaneous therapy a few days later, not surprisingly, it proved to be a very difficult case. Ultimately, I was able to move out the stent to proximal area with a 3.5 x 12 mm stent and a 3.0 x 8 mm stent and post dilate these to 3.5 mm, but despite multiple maneuvers including a GuideLiner in the coronary, unable to stent the more distal lesion, which was successfully balloon dilated, but not stented. It was a very complicated procedure as is outlined in the chart. He has done relatively well, unfortunately he continued to smoke over the years despite strong advise not to. The patient also has a history of carotid arterial disease bilaterally, has undergone endarterectomy both sides by Dr. Sharma. MEDICATIONS AT HOME: 1. Amlodipine. 2. Plavix. 3. Aspirin. 4. Rosuvastatin. ALLERGIES: 1. PENICILLIN. 2. SULFA. 3. TETRACYCLINE. SOCIAL HISTORY: He continues to smoke. FAMILY HISTORY: Negative for heart disease in a young age. REVIEW OF SYSTEMS: CONSTITUTIONAL: No significant weight gain or loss. VISION: No changes. HAIR: No changes. PULMONARY: No cough or wheezing. GASTROINTESTINAL: No nausea, vomiting, or diarrhea. SKIN: No rashes. NEUROLOGIC: No unilateral weakness or numbness. PSYCHIATRIC: No unusual depression or anxiety. HEMATOLOGIC: No unusual bruising. GENITOURINARY: No burning with urination. PHYSICAL EXAMINATION: GENERAL: This is a 73-year-old gentleman, does look somewhat older than his chronologic age. VITAL SIGNS: Blood pressure 146/67, pulse 57 and sinus on the monitor. EYES: Sclerae nonicteric. MOUTH: Mucous membranes moist. NECK: Supple. No lymphadenopathy. LUNGS: Clear. No wheezing, rales, or rhonchi. CARDIAC: Normal S1. Normal S2. There is no murmur, rub, or gallop. ABDOMEN: Soft and nontender. No hepatosplenomegaly. EXTREMITIES: Warm, dry, and no clubbing, cyanosis, or edema. He has posterior tibial pulses bilaterally. It was noted at the time of catheterization that he does have peripheral vascular disease, required a Wholey wire to negotiate the catheters up into the aorta. DIAGNOSTICS: EKG did not show any ischemic changes. He had sinus bradycardia, mild. ASSESSMENT: 1. Unstable angina. 2. Hypercholesterolemia. 3. Hypertension, controlled. 4. Peripheral vascular disease. 5. Continued tobacco dependence. 6. History of carotid arterial stenosis with previous endarterectomy. PLAN: Proceed the cardiac catheterization tomorrow. Discussed risks of stroke, heart attack, iodine allergy, loss of blood supply to leg or kidney, stent thrombosis, stent restenosis, he understands and whishes to proceed. If he does have restenosis or if he has a stenosis in the distal lesion, may have to undergo bypass surgery. We were unable to get a stent in that area several years ago. Job ID: [id number]
[2018-02-26] MEDS ORDERED: Sodium Chloride 0.9% 1,000 ML IV SCH ×2 (05:00→08:28)
[2018-02-26] MEDS: Famotidine 20 MG TAB PO SCH (05:27)
[2018-02-26 06:28] LABS: #Eosinphils 0.3 thou/uL (0.0-0.7); #Lymphocytes 1.7 thou/uL (1.20-3.40); #Monocytes 0.5 thou/uL (0.11-0.59); #Neutrophils 2.7 thou/uL (1.40-6.50); %Basophils 0.5 % (0.0-1.0); %Eosinophils 4.8 % (0.0-10.0); %Lymphocytes 32.2 % (21.0-51.0); %Monocytes 10.1 % (0.0-10.0); %Neutrophils 52.4 % (42.0-75.0); Hemoglobin 14.5 g/dL (14.0-18.0); Mean Corpuscular HGB CONC 32.9 g/dL (32.0-36.0); Mean Corpuscular Hemoglobin 30.5 pg (27.0-31.0); Mean Corpuscular Volume 92.7 fL (78.0-98.0); Mean Platelet Volume 8.1 fL (7.4-10.4); Platelet Count 211 thou/uL (130-400); RBC Distribution Width 11.3 % (11.5-14.5); Red Blood Cell (RBC) Count 4.74 mill/uL (4.70-6.10); White Blood Cell (WBC) Count 5.2 thou/uL (4.8-10.8)
[2018-02-26] MEDS ORDERED: Lidocaine 1% (PF) 30 ML VIAL ONE (06:48)
[2018-02-26 06:51] LABS: Anion Gap 9 mmol/L (10-20); BUN (Urea Nitrogen) 13 mg/dL (8.4-25.7); Calc. Creatinine Clearance 90 mL/min (70-130); Calcium 9.4 mg/dL (7.8-10.44); Carbon Dioxide 25 mmol/L (23-31); Chloride 108 mmol/L (98-107); Estimated GFR-MDRD 89; Glucose 91 mg/dL (83-110); Potassium 3.9 mmol/L (3.5-5.1); Sodium 138 mmol/L (136-145)
[2018-02-26] MEDS ORDERED: Midazolam HCl 2 mg/2 ml Vial ONE (07:16)
[2018-02-26] MEDS ORDERED: Fentanyl 100 MCG/2 ML VIAL ONE (07:16)
[2018-02-26] MEDS ORDERED: traMADol HCl 50 MG TAB PO PRN (08:26)
[2018-02-26] MEDS ORDERED: Acetaminophen/Codeine 30-300mg Tablet PO PRN ×2 (08:26)
[2018-02-26] MEDS ORDERED: Nitroglycerin 0.4 MG TAB (25 Tab Bottle) SL PRN (08:26)
[2018-02-26] MEDS ORDERED: Sodium Chloride 0.9% 200 ML IV SCH (08:30)
[2018-02-26] MEDS ORDERED: Aspirin 81 mg Enteric Coated Tablet PO SCH (09:00)
[2018-02-26] MEDS ORDERED: Amlodipine 5 MG TAB PO SCH (09:00)
[2018-02-26] MEDS ORDERED: Ubidecarenone 50 MG CAP PO SCH (09:00)
[2018-02-26] MEDS ORDERED: Clopidogrel Bisulfate 75 MG TAB PO SCH (09:00)
[2018-02-26] MEDS ORDERED: Iopamidol 370 76% 100 ML VIAL ONE (09:45)
[2018-02-26] MEDS: HYDROcodone/Acetaminophen 5/325 mg Tablet PO PRN (10:31)
[2018-02-26 11:44] VITALS: BP 124/64; TEMP 98.4
[2018-02-26] MEDS: Nicotine 21 MG PATCH TD SCH (11:48)
--- NOTE | 2018-02-26 14:27 | HP ---
CHIEF COMPLAINT: Chest pain. HISTORY: This patient is a 73-year-old male with a history of prior known coronary artery disease. About 3 years ago, the patient had cardiac intervention with Dr. Lyn, in which the patient had significant right coronary artery disease with heavy calcification. He had angioplasty and stent placed; however, there were still some persistent distal disease given that heavy calcification could not adequately be stented. The patient also reports that he has a history of carotid endarterectomy and subsequent to that, he has had persistent pain in his right neck and upper back area. The patient reports about 4 days ago, he started experiencing pain in the chest area that was a combination of sharp and dull with twinges, very sharp pain. It was intermittent, at times it would resolve entirely. He had exacerbation of the pain in his neck and shoulder area along with that. The patient reports that he does feel short of breath and has true air hunger with this. He denies any nausea or any true radiation of the symptoms other than the exacerbation of the pain in the right upper shoulder, back, and neck area. Of note, the patient was seen in Dr. Lyn's office yesterday by a nurse practitioner. At that time, the plan was for the patient to be set up for outpatient stress testing and echocardiogram. REVIEW OF SYSTEMS: The patient reports chronic tinnitus in his right ear, but that seems to be worse. He has mild diarrhea and loose stools. He has some recent right foot swelling, chronic osteoarthritis, pain mostly in his left hand and he also reports about 35-pound weight loss over an 8-month period, which he believes is explicable by some of the medical intervention he has undergone. He does admit to some anxiety and depression. He also reports that he had some right upper quadrant pain for about a month, initially thought it was gallbladder related. He took Epsom salt and it seem to improve, and then he had it again, took Epsom salt again, and that has resolved. All other systems were reviewed and all pertinent positives and negatives mentioned in the history of present illness. PAST MEDICAL HISTORY: Notable for hypertension, hyperlipidemia, coronary artery disease, peripheral vascular disease, bilateral carotid stenosis, childhood asthma, BPH. PAST SURGICAL HISTORY: The patient underwent a TURP about 6 months ago, had fair amount of subsequent bleeding, but that is all, that is controlled and resolved now. His carotid stenting x2 in 2015 and bilateral carotid endarterectomy, right shoulder surgery, spine surgery of his cervical and lumbar spine and the coronary intervention as above. FAMILY HISTORY: Father at 45 with heart disease. Mother of cancer at 70. SOCIAL HISTORY: The patient is a nonsmoker, nondrinker. He does continue to smoke a pack of cigarettes per day. He is full code and his daughter is his surrogate decision maker. ALLERGIES: PENICILLIN, SULFA, TETRACYCLINE. CURRENT MEDICATIONS: 1. CoQ10 100 mg q.a.m. 2. Crestor 10 mg q.p.m. 3. Hydrocodone p.r.n. 4. Plavix 75 mg daily. 5. Aspirin 81 mg daily. 6. Norvasc 5 mg b.i.d. PHYSICAL EXAMINATION: VITAL SIGNS: Temperature 98.0, pulse 62, respirations 16, O2 saturation 94% on room air, BP 155/70. GENERAL APPEARANCE: The patient appears slightly uncomfortable. He is awake and alert. HEENT: PERRL. No OP lesions. NECK: Supple and symmetric with no lymphadenopathy or JVD. HEART: Regular rate and rhythm with no murmurs, gallops, or rubs. LUNGS: Clear to auscultation bilaterally with good chest wall expansion and exchange. ABDOMEN: Soft, nontender and nondistended. Positive bowel sounds. No masses. No organomegaly. EXTREMITIES: Warm and dry without significant edema noted, may be trace edema in the right lower extremity only. SKIN: Normal turgor. No lesions. NEUROLOGIC: The patient appears to be fully intact with no focal deficits. PSYCHIATRIC: The patient has normal affect and behavior. LABORATORY DATA: White count is 4.8, hemoglobin 14.6, platelets 208. D-dimer 0.39. Sodium 139, potassium 3.6, chloride 107, CO2 24, BUN 14, creatinine 0.88, magnesium low at 2.6. AST 16, ALT 16. Troponin less than 0.01. Albumin 4.2. BNP is 13.5. Lipase 12. Chest x-ray is negative. EKG is normal sinus rhythm with no significant ST or T-waves changes upon my evaluation. IMPRESSION AND PLAN: 1. Chest pain. The patient with known coronary disease. Concern is that the patient continues to smoke. He has negative troponin and nakul EKG with the pain, so I am concerned for the possibility of dissection. We will get a CT dissection protocol to rule that out. The patient also has a negative D-dimer making PE less likely. He has had some recent right upper quadrant pain concerning for possible gallbladder disease, so we will get an ultrasound there as well. Also, I have discussed the case with Dr. Lyn, since the patient was seen in his office yesterday. He will consult and possibly anticipate heart cath. We will continue with telemetry and ruling out myocardial injury with serial and cardiac isoenzymes. In the meantime, continue the patient on his Plavix and aspirin. 2. Hyperlipidemia. Continue with Crestor. 3. Hypertension. Continue with the amlodipine. Job ID: [id number]
[2018-02-26] MEDS ORDERED: Rosuvastatin 10 MG TAB PO SCH (21:00)
== END 2018-02-26 15:55 | disposition home or self-care (01) ==
LOC: ERS 01:02 → ERHOLD 02:55 → 2SW 16:55
PROVIDERS: ADMIT Internal Medicine; ATTEND Internal Medicine
PROC: 4A023N7 Measurement of Cardiac Sampling and Pressure, Left Heart, Percutaneous Approach (ICD-10-PCS; principal; 2018-02-26)
PROC: B2111ZZ Fluoroscopy of Multiple Coronary Arteries using Low Osmolar Contrast (ICD-10-PCS; 2018-02-26)
DX: I25.110 Atherosclerotic heart disease of native coronary artery with unstable angina pectoris (principal); I25.84 Coronary atherosclerosis due to calcified coronary lesion; E78.00 Pure hypercholesterolemia, unspecified; I10 Essential (primary) hypertension; F17.210 Nicotine dependence, cigarettes, uncomplicated; E78.5 Hyperlipidemia, unspecified; I73.9 Peripheral vascular disease, unspecified; Z79.02 Long term (current) use of antithrombotics/antiplatelets; Z79.82 Long term (current) use of aspirin; Z79.899 Other long term (current) drug therapy; Z88.0 Allergy status to penicillin; Z88.1 Allergy status to other antibiotic agents; Z88.2 Allergy status to sulfonamides; Z95.5 Presence of coronary angioplasty implant and graft; Z98.890 Other specified postprocedural states
CPT/HCPCS: 71045; 71275; 76705; 76942; 80048; 80053; 82553; 83690; 83735; 83880; 84484 ×2; 85025 ×2; 85379; 90662; 93005; 93458; 96372; 99285; C1769; G0008; G0278; G0378 ×2; 36415; 75625; 90471; 93306; 99152; 99153; J1644; J1650; J2001; J2250; J3010; Q0162

== ENCOUNTER 2018-10-10 13:27 | Inpatient (IN) | payer MEDICARE ==
[~2018-10-10 13:27] MED LIST changes: +ISOVUE-370 76%-LOCM 1 ML ONE; -Iopamidol 370 76% 100 ML VIAL ONE
[2018-10-10 14:27] LABS: #Eosinphils 0.1 thou/uL (0.0-0.7); #Lymphocytes 1.3 thou/uL (1.20-3.40); #Monocytes 0.7 thou/uL (0.11-0.59); %Basophils 0.7 % (0.0-1.0); %Eosinophils 2.4 % (0.0-10.0); %Lymphocytes 20.2 % (21.0-51.0); %Neutrophils 64.7 % (42.0-75.0); Hemoglobin 14.5 g/dL (14.0-18.0); Mean Corpuscular Hemoglobin 32.3 pg (27.0-31.0); Mean Corpuscular Volume 94.8 fL (78.0-98.0); Mean Platelet Volume 7.8 fL (7.4-10.4); Platelet Count 177 thou/uL (130-400); RBC Distribution Width 11.4 % (11.5-14.5); Red Blood Cell (RBC) Count 4.49 mill/uL (4.70-6.10); White Blood Cell (WBC) Count 6.2 thou/uL (4.8-10.8)
[2018-10-10 14:48] LABS: ALT (SGPT) 20 U/L (8-55); AST (SGOT) 15 U/L (5-34); Alkaline Phosphatase 43 U/L (40-150); Anion Gap 9 mmol/L (10-20); BUN (Urea Nitrogen) 16 mg/dL (8.4-25.7); Bilirubin, Total 0.5 mg/dL (0.2-1.2); CK (CPK) 64 U/L (30-200); Calc. Creatinine Clearance 0 mL/min (70-130); Calcium 9.4 mg/dL (7.8-10.44); Carbon Dioxide 28 mmol/L (23-31); Chloride 108 mmol/L (98-107); Estimated GFR-MDRD Greater than 90; Globulin 1.8 g/dL (2.4-3.5); Glucose 60 mg/dL (83-110); Potassium 4.1 mmol/L (3.5-5.1); Protein, Total 5.8 g/dL (5.8-8.1); Sodium 141 mmol/L (136-145)
--- NOTE | 2018-10-10 16:20 | CT ---
CTA Angio Chest W WO Con 10/10/2018 3:47 PM Indication: Chest pain and weakness Technique: Multiple CTA images were obtained of the thorax with IV contrast. 3D reformatted images were constructed from the raw data. Comparison: None Findings: Pulmonary arteries: No central or segmental pulmonary embolus is evident. Heart and Great Vessels: There are scattered vascular calcifications involving the coronary arteries and thoracic aorta. There are shotty appearing lymph nodes within the left hilar region and mediastinum. No pathologically enlarged lymph node is evident. There are calcified lymph nodes within the mediastinum. Lungs:There are scattered emphysema. There is pleural parenchymal scarring involving both lung apices . There is calcified granuloma in the right lower lobe. No confluent airspace opacity, pleural effusion or pneumothorax is evident Pleural space: No pleural effusion is demonstrated Upper Abdomen: There are numerous granulomas involving the spleen and liver. Visualized adrenal glan ds are unremarkable appearing. Osseous Structures: There is scattered degenerative and osteoarthritic change present. No acute frac ture or subluxation demonstrated. Impression: No central or segmental pulmonary embolus.
[2018-10-10 17:52] LABS: Troponin I Less than 0.010 ng/mL (< 0.028)
[2018-10-10 19:35] VITALS: BMI 24.8
[2018-10-10] MEDS ORDERED: Ondansetron PF 4 MG/2 ML Vial IVP PRN (19:52)
[2018-10-10] MEDS ORDERED: Ondansetron ODT 4 MG TAB PO PRN (19:52)
[2018-10-10] MEDS ORDERED: Acetaminophen 325 MG TAB PO PRN (19:52)
[2018-10-10] MEDS ORDERED: hydrALAZINE 20 MG/ML VIAL SLOW IVP PRN (19:58)
[2018-10-10] MEDS ORDERED: Polyethylene Glycol 3350 17 GM Packet PO PRN (20:30)
[2018-10-10] MEDS: Amlodipine 5 MG TAB PO SCH (20:36)
[2018-10-10] MEDS: Nicotine 21 MG PATCH TD SCH (20:36)
[2018-10-10] MEDS: Rosuvastatin 10 MG TAB PO SCH (20:36)
[2018-10-10] MEDS: Aspirin Chewable 81 MG TAB PO SCH (20:38)
[2018-10-10 20:51] LABS: Troponin I Less than 0.010 ng/mL (< 0.028)
[2018-10-10] MEDS ORDERED: Famotidine 20 MG TAB PO SCH (21:00)
[2018-10-10] MEDS: HYDROcodone/Acetaminophen 10/325 mg Tablet PO PRN (21:45)
[2018-10-11] MEDS ORDERED: Lidocaine 5% Patch TD SCH (00:15)
[2018-10-11] MEDS: ALPRAZolam 0.25 MG TAB PO PRN ×2 (00:18→23:43)
--- NOTE | 2018-10-11 00:54 | HP ---
PRIMARY CARE PHYSICIAN: Sony Mclain MD CHIEF COMPLAINT: Chest pain and bradycardia. HISTORY OF PRESENT ILLNESS: Mr. Kory Gonzalez is a pleasant 73-year-old man with past medical history of hypertension, hyperlipidemia, BPH, vascular disease and coronary artery disease, who had presented to [facility] earlier today after he noted that his heart rate was in the 30s at home. The patient states that during this time, he had felt some mild left-sided chest pain, nausea without vomiting, diaphoretic, and he felt lightheaded. Upon arriving to the ER, his heart rate improved in the 50s and 60s and his chest pain and other symptoms resolved, an EKG was performed and just showed sinus bradycardia with a rate of 52. The patient states that his credit control assistant is Dr. Lyn and over the last several weeks, he has noticed that his blood pressure has been quite high at nighttime and he had seen his PCP last week, who had started him on 25 mg twice daily metoprolol, he had stated that this helped with his blood pressure; however, noticed that his heart rate had dropped. His lab work showed a D-dimer of 0.46 and a CTA was performed; however, this was negative for PE at this time. So far, his troponin is negative x2 and a BNP is normal at 82.1. The patient denied any fever, chills, headache, palpitations, shortness of breath, or swelling down his extremities. He however endorses some right-sided neck pain, which has been chronic for him, he usually takes [place] at home for pain control; however, has not taken any dose so far today. REVIEW OF SYSTEMS: All other systems were reviewed and found to be negative unless mentioned in HPI. PAST MEDICAL HISTORY: Hypertension, hyperlipidemia, BPH, vascular disease and coronary artery disease. PAST SURGICAL HISTORY: Cardiac stents x2, TURP, left and right carotid endarterectomy, right shoulder surgery, spinal surgery in the cervical and lumbar spine. PAST PSYCHIATRIC HISTORY: None. SOCIAL HISTORY: The patient denies alcohol or any illicit drug use; however, does endorse smoking a pack of cigarettes per day and chewing tobacco 2 to 3 times a day. The patient's surrogate decision maker is his daughter, Rin Meza. KNOWN ALLERGIES: Penicillin, sulfa, and tetracycline. CURRENT HOME MEDICATIONS: 1. Aspirin 81 mg daily. 2. Amlodipine 5 mg p.o. b.i.d. 3. Clopidogrel 75 mg p.o. daily. 4. Hydrocodone/acetaminophen 10/325 mg p.o. q.6 hours p.r.n. pain. 5. Metoprolol 25 mg p.o. b.i.d. 6. Polyethylene glycol 17 g p.o. daily. 7. Vitamin D3 1000 units p.o. daily. 8. Rosuvastatin 10 mg p.o. at bedtime. 9. CoQ10 100 mg p.o. daily. 10. Alprazolam 0.25 mg p.o. at bedtime anxiety. PHYSICAL EXAMINATION: VITAL SIGNS: BP 179/77, pulse 53, respirations 20, temperature 98.4 degrees Fahrenheit, O2 saturations 97% on room air. GENERAL: The patient is awake, alert, and oriented x3. He is currently lying comfortably in bed and in no acute distress at this time. His 2 daughters and granddaughter are at bedside. HEENT: Atraumatic, normocephalic. Pupils are round and reactive to light. Extraocular muscles intact. Moist mucous membranes noted. NECK: Soft, supple. Trachea midline. CARDIOVASCULAR: Positive S1 and S2. Regular rhythm with a rate in the 50s and bradycardic. No murmur auscultated. RESPIRATORY: Clear to auscultation bilaterally. No wheezes, rales, or rhonchi. ABDOMEN: Soft, nontender. Bowel sounds present. MUSCULOSKELETAL: Strength 5+ bilaterally in upper and lower extremities. Moves all extremities equal. Pedal and radial pulses 2+ bilaterally. No edema noted. NEUROLOGIC: Cranial nerves 2 through 12 grossly intact. No focal deficits noted. Speech intact and normal. Gait not assessed. SKIN: Warm, dry, and intact. No rashes. No ulceration noted. PSYCHIATRIC: Good mood and affect. LABORATORY DATA: WBC 6.2, RBC 4.49, hemoglobin 14.5, hematocrit 42.6, platelet 177. D-dimer 0.46. Sodium 141, potassium 4.1, anion gap 9, BUN 16, creatinine 0.77, estimated GFR greater than 90, glucose 60. Troponin less than 0.010 x2, BNP 82.1. DIAGNOSTIC IMAGING: CTA of chest showed no central or segmental pulmonary embolus. ASSESSMENT AND PLAN: 1. Symptomatic bradycardia, the patient's symptoms improved and his rate is currently in the 50s on the monitor. This is likely secondary to new home medication metoprolol started by his PCP. Therefore, this will be held at this time. Cardiology Services will be consulted for the morning for further evaluation and recommendations. The patient will be monitored on telemetry and blood pressure and other vital signs will be monitored. 2. Hypertension, currently stable. He will be restarted on his home regimen excluding metoprolol. Therefore, he will be started on IV hydralazine 10 mg p.r.n. elevated blood pressures. 3. Hyperlipidemia. Continue home statin. 4. Coronary artery disease. Continue home aspirin and Plavix and other home regimen. 5. Deep venous thrombosis and gastrointestinal prophylaxis. 6. Code status, full code. 7. Surrogate decision maker is his daughter, Rin. 8. Disposition pending further workup and clinical findings. Job ID: [id number]
[2018-10-11 05:16] LABS: #Basophils 0.1 thou/uL (0.0-0.2); #Eosinphils 0.3 thou/uL (0.0-0.7); #Monocytes 0.6 thou/uL (0.11-0.59); #Neutrophils 3.5 thou/uL (1.40-6.50); %Basophils 1.2 % (0.0-1.0); %Eosinophils 4.9 % (0.0-10.0); %Lymphocytes 30.8 % (21.0-51.0); %Monocytes 9.5 % (0.0-10.0); %Neutrophils 53.5 % (42.0-75.0); Hemoglobin 14.6 g/dL (14.0-18.0); Mean Corpuscular HGB CONC 32.5 g/dL (32.0-36.0); Mean Corpuscular Hemoglobin 30.6 pg (27.0-31.0); Mean Corpuscular Volume 94.2 fL (78.0-98.0); Mean Platelet Volume 8.1 fL (7.4-10.4); Platelet Count 186 thou/uL (130-400); RBC Distribution Width 11.3 % (11.5-14.5); Red Blood Cell (RBC) Count 4.77 mill/uL (4.70-6.10); White Blood Cell (WBC) Count 6.6 thou/uL (4.8-10.8)
[2018-10-11 05:21] LABS: Anion Gap 10 mmol/L (10-20); BUN (Urea Nitrogen) 12 mg/dL (8.4-25.7); Calc. Creatinine Clearance 77 mL/min (70-130); Calcium 9.2 mg/dL (7.8-10.44); Carbon Dioxide 27 mmol/L (23-31); Chloride 105 mmol/L (98-107); Estimated GFR-MDRD 77; Glucose 83 mg/dL (83-110); Sodium 138 mmol/L (136-145)
[2018-10-11] MEDS: HYDROcodone/Acetaminophen 10/325 mg Tablet PO PRN ×2 (07:53→21:40)
[2018-10-11] MEDS ORDERED: Enoxaparin Sodium 40 MG/0.4 ML SYRINGE SC SCH (09:00)
[2018-10-11] MEDS ORDERED: Clopidogrel Bisulfate 75 MG TAB PO SCH (09:00)
[2018-10-11] MEDS: Ubidecarenone 50 MG CAP PO SCH (09:51)
[2018-10-11] MEDS: Amlodipine 5 MG TAB PO SCH ×2 (09:52→21:24)
[2018-10-11] MEDS: Lidocaine Patch Removal 1 EACH TOP SCH (09:53)
[2018-10-11] MEDS: Lorazepam 0.5 MG TAB PO PRN (14:19)
[2018-10-11] MEDS: Nitroglycerin 2% Ointment 1 INCH/1 GM Packet TOP SCH ×2 (14:19→21:26)
--- NOTE | 2018-10-11 14:35 | PDOC.PN ---
- Subjective Encounter Start Date: 10/11/18 Encounter Start Time: 11:30 Subjective: patient examined, c/o of "not feeling well", reports -: intermittent numbness/tingling to all extremities -: c/o rightsided neck pain - Objective Resuscitation Status - Order Detail: 10/10/18 19:52 Resuscitation Status Routine Co-Sign Provider: Resuscitation Status: FULL: Full Resuscitation Vital Signs & Weight: Vital Signs (12 hours) Temp Pulse Resp BP BP BP BP 10/11/18 11:18 97.6 F 62 20 10/11/18 09:52 48 L 154/67 H 10/11/18 09:15 49 L 22 H 145/65 H 10/11/18 08:03 97.4 F L 47 L 16 123/64 131/58 L 10/11/18 04:28 98.6 F 43 L 14 117/56 L BP Pulse Ox 10/11/18 11:18 133/62 98 10/11/18 09:52 10/11/18 09:15 99 10/11/18 08:03 127/60 98 10/11/18 04:28 97 Weight Weight 80.785 kg I&O: 10/10/18 10/11/18 10/12/18 06:59 06:59 06:59 Intake Total 450 480 Output Total 550 Balance -100 480 Result Diagrams: 10/11/18 04:52 10/11/18 04:52 Phys Exam - Physical Examination HEENT: PERRLA, moist MMs Point tenderness to paraspinal Respiratory: clear to auscultation bilateral Cardiovascular: RRR, no significant murmur Gastrointestinal: soft, non-tender Musculoskeletal: no edema, pulses present Neurological: non-focal, normal sensation Psychiatric: normal affect, A&O x 3 Skin: cap refill <2 seconds Dx/Plan (1) CAD (coronary artery disease) Code(s): I25.10 - ATHSCL HEART DISEASE OF [place] CORONARY ARTERY W/O ANG PCTRS Status: Chronic Qualifiers: Coronary Disease-Associated Artery/Lesion type: [place] artery Comment: Dr. Lyn consulted, cardiac markers neg x3 (2) Hyperlipidemia Code(s): E78.5 - HYPERLIPIDEMIA, UNSPECIFIED Status: Chronic (3) Hypertension Code(s): I10 - ESSENTIAL (PRIMARY) HYPERTENSION Status: Chronic Qualifiers: Hypertension type: essential hypertension Qualified Code(s): I10 - Essential (primary) hypertension Comment: Running a bit high this AM, bradycardic so will add hydralazine (4) Unstable angina Status: Acute - Plan cont current plan of care Dr Lyn will cath on Thursday -: Discussed outpt f/u for neck pain, MRI did not show acute findings -: Lopressor is being held, pulse lower than 60 -: PT/OT consults, will continue to monitor * . Review of Systems - Review of Systems Respiratory: Shortness of Breath Cardiovascular: chest pain, light headedness Musculoskeletal: Neck Pain Neurological: Numbness (intermittent to all extremities) - Medications/Allergies Allergies/Adverse Reactions: Allergies Allergy/AdvReac Type Severity Reaction Status Date / Time Penicillins Allergy lips Verified 10/10/18 20:08 swell, rash Sulfa (Sulfonamide Allergy Verified 10/10/18 20:08 Antibiotics) tetracycline Allergy rash, Verified 10/10/18 20:08 swelling Medications: Current Medications Acetaminophen (Tylenol) 650 mg PO Q4H PRN PRN Reason: Headache/Fever/Mild Pain (1-3) Hydrocodone Bitart/Acetaminophen (U[place] 10/325) 1 tab PO Q6H PRN PRN Reason: Moderate to Severe Pain (6-10) Last Admin: 10/11/18 07:53 Dose: 1 tab Alprazolam (Xanax) 0.25 mg PO HS PRN PRN Reason: Anxiety Last Admin: 10/11/18 00:18 Dose: 0.25 mg Amlodipine Besylate (Norvasc) 5 mg PO BID [facility] Last Admin: 10/11/18 09:52 Dose: 5 mg Aspirin (Aspirin Chewable) 81 mg PO QPM [facility] Last Admin: 10/10/18 20:38 Dose: 81 mg Coenzyme Q10 (Coenzyme Q10) 200 mg PO QAM [facility] Last Admin: 10/11/18 09:51 Dose: 200 mg Enoxaparin Sodium (Lovenox) 80 mg SC 0900,2099 [facility] Hydralazine HCl (Apresoline) 10 mg SLOW IVP Q4H PRN PRN Reason: Hypertension Lidocaine (Lidoderm 5% Patch) 1 patch TD 2099 [facility] Lorazepam (Ativan) 0.5 mg PO Q4H PRN PRN Reason: Anxiety Last Admin: 10/11/18 14:19 Dose: 0.5 mg Miscellaneous Medication (Lidocaine Patch Removal) 1 each TOP 0900 [facility] Last Admin: 10/11/18 09:53 Dose: 1 each Nicotine (Nicoderm Patch) 21 mg TD Q24HR [facility] Last Admin: 10/10/18 20:36 Dose: 21 mg Nitroglycerin (Nitro-Bid 2% Ointment) 1 inch TOP Q8HR [facility] Last Admin: 10/11/18 14:19 Dose: 1 inch Ondansetron HCl (Zofran Odt) 4 mg PO Q6H PRN PRN Reason: Nausea/Vomiting Ondansetron HCl (Zofran) 4 mg IVP Q6H PRN PRN Reason: Nausea/Vomiting Pantoprazole Sodium (Protonix) 40 mg PO DAILY [facility] Last Admin: 10/11/18 09:53 Dose: 40 mg Polyethylene Glycol (Miralax) 17 gm PO DAILY PRN PRN Reason: Constipation Rosuvastatin Calcium (Crestor) 10 mg PO QPM [facility] Last Admin: 10/10/18 20:36 Dose: 10 mg Senna/Docusate Sodium (Senokot S) 1 tab PO BID [facility]
--- NOTE | 2018-10-11 15:32 | CON ---
DATE OF CONSULTATION: 10/11/2018 REASON FOR CONSULTATION: Chest pressure, unstable angina. HISTORY OF PRESENT ILLNESS: Mr. Horn is a 73-year-old gentleman. The patient recently he has been having increasing amounts of spikes in blood pressure and he said when his blood pressure got high, he had some chest tightness. Other times he felt chest tightness even when his blood pressure was not elevated. He went to see Dr. Mclain and he was placed on metoprolol. He initially did quite well until this weekend, he stated having increasing weakness and fatigue and he even had near syncope. He was brought to the hospital, he was found to be bradycardic. His heart rate is back up today after being off metoprolol since yesterday morning, but he still does not feel well, still has intermittent chest pressure. PAST MEDICAL HISTORY: He has a history of stent implantation, it was a complicated procedure done in January of 2015, please see the notes for that, it is a very complex procedure and the disease extended back to the origin of the right coronary, ultimately procedure was done successfully. The stent had extended back into the aorta as there was ostial involvement. The patient underwent cardiac catheterization in January 2015. He was found to have patent right coronary artery. No obstructive disease in the other LAD or circumflex. They look like about a 50% stenosis in the stented area. He did have an ostial location in the right iliac. Medical therapy is advised. Unfortunately, the patient has continued to smoke since discharge and also apparently chews tobacco. ALLERGIES: TO PENICILLIN, SULFA, AND TETRACYCLINE. SOCIAL HISTORY: He continues to smoke. REVIEW OF SYSTEMS: CONSTITUTIONAL: Positive for weakness, fatigue, and some numbness in his legs and arms as well at times. VISION: No changes. HEARING: No changes. PULMONARY: No cough or wheezing. GASTROINTESTINAL: No nausea, vomiting, or diarrhea. SKIN: No rashes. NEUROLOGIC: No unilateral weakness or numbness. PSYCHIATRIC: No unusual depression or anxiety, but he feels fatigued. PAST MEDICAL HISTORY: Coronary artery disease as outlined above. FAMILY HISTORY: Noncontributory. PHYSICAL EXAMINATION: GENERAL: This is a 73-year-old gentleman, who states he just still does not feel well. VITAL SIGNS: Heart rate is 48 even at 10 a.m. this morning, 62 now, and the most recent, I looked at the monitor, it is in the mid 50s. HEENT: Eyes; sclerae nonicteric. Mouth; mucous membranes moist. NECK: Supple. No lymphadenopathy. LUNGS: Clear. No wheezing, rales, or rhonchi. CARDIAC: Normal S1, normal S2. There is no murmur, rub, or gallop. ABDOMEN: Soft and nontender. No hepatosplenomegaly. EXTREMITIES: Warm and dry. No clubbing. No cyanosis. No edema. Peripheral pulses, I feel popliteal pulses bilaterally and femoral pulses, but I do not feel pedal pulses. SKIN: Warm and dry. LABORATORY DATA: Cardiac enzymes were negative. IMAGING STUDIES: EKG initially showed sinus bradycardia. Cardiac catheterization was reviewed and the findings as outlined above. ASSESSMENT: 1. Unstable angina. 2. Single-vessel coronary artery disease. 3. Peripheral vascular disease. 4. Numbness in the extremities, probably related to the cervical spine and I suspect could have some lumbar spinal involvement as well. Please see the MRI done of the cervical spine showing multiple foraminal narrowings. 5. Continued smoking. PLAN: We have discussed over the years on MULTIP[employer] the importance of not smoking, he has been unable to quit smoking. He says he just cannot "live like this." In terms of the multiple complaints as outlined above. We had a long discussion about some of the symptoms that are not related to his coronary arteries, but the chest pressure it likely is. He said this has to have something done. I told him that cardiac catheterization could be done to see if stent implantation is feasible. Discussed risks of the procedure. Discussed that he is not an ideal candidate for bypass surgery with continued smoking. The patient understands and wished to proceed. We will tentatively plan for Thursday. Would like the beta-maru to be out of his system prior to going to the hospital laboratory technician to try to optimize our chance of success, at that time there is a significant chance this could not be done. Sometimes the guide catheters will go easily into the stented area, sometimes they are very difficult if not impossible to cannulate these. He understands we will tentatively plan for Thursday. Job ID: [id number]
[2018-10-11] MEDS: Nicotine 21 MG PATCH TD SCH (21:24)
[2018-10-11] MEDS: Lidocaine 5% Patch TD SCH (21:26)
[2018-10-11] MEDS: Enoxaparin Sodium 80 MG/0.8 ML SYRINGE SC SCH (21:26)
[2018-10-11] MEDS: Rosuvastatin 10 MG TAB PO SCH (21:26)
[2018-10-11] MEDS: Aspirin Chewable 81 MG TAB PO SCH (21:26)
[2018-10-11] MEDS: Senokot S 8.6-50 MG TAB PO SCH (21:26)
[2018-10-12] MEDS: Nitroglycerin 2% Ointment 1 INCH/1 GM Packet TOP SCH ×4 (05:57→22:17)
[2018-10-12] MEDS: Ubidecarenone 50 MG CAP PO SCH (09:03)
[2018-10-12] MEDS: HYDROcodone/Acetaminophen 10/325 mg Tablet PO PRN ×2 (09:04→20:33)
[2018-10-12] MEDS: Senokot S 8.6-50 MG TAB PO SCH ×2 (09:04→20:33)
[2018-10-12] MEDS: Lidocaine Patch Removal 1 EACH TOP SCH (09:05)
[2018-10-12] MEDS: Amlodipine 5 MG TAB PO SCH ×2 (09:05→20:32)
[2018-10-12] MEDS: Enoxaparin Sodium 80 MG/0.8 ML SYRINGE SC SCH (09:05)
[2018-10-12] MEDS: Lorazepam 0.5 MG TAB PO PRN (11:58)
--- NOTE | 2018-10-12 12:54 | PDOC.PN ---
- Subjective Encounter Start Date: 10/12/18 Encounter Start Time: 10:00 Subjective: Patient examined, reports his neck/back pain have improved -: from yesterday. Denies current chest pain but states he does not -: feel "well". Reports this is generalized. - Objective Resuscitation Status - Order Detail: 10/10/18 19:52 Resuscitation Status Routine Co-Sign Provider: Resuscitation Status: FULL: Full Resuscitation Vital Signs & Weight: Vital Signs (12 hours) Temp Pulse Resp BP BP Pulse Ox 10/12/18 11:43 97.8 F 66 16 135/63 96 10/12/18 09:05 50 L 131/59 L 10/12/18 08:05 94 L 10/12/18 08:00 97.8 F 50 L 16 131/59 L 96 10/12/18 04:00 97.9 F 58 L 16 125/61 94 L Weight Weight 79.061 kg I&O: 10/11/18 10/12/18 10/13/18 06:59 06:59 06:59 Intake Total 450 720 240 Output Total 550 Balance -100 720 240 Result Diagrams: 10/11/18 04:52 10/11/18 04:52 Phys Exam - Physical Examination HEENT: PERRLA, moist MMs Neck: no nodes, no JVD Respiratory: no wheezing, clear to auscultation bilateral Cardiovascular: RRR Gastrointestinal: soft, non-tender Musculoskeletal: no edema, pulses present TTP right neck paraspinal muscles and down to right shoulder blade. Full ROM. Neurological: non-focal, normal sensation, moves all 4 limbs Lymphatic: no nodes Psychiatric: normal affect, A&O x 3 Skin: no rash, normal turgor, cap refill <2 seconds Dx/Plan (1) CAD (coronary artery disease) Code(s): I25.10 - ATHSCL HEART DISEASE OF [place] CORONARY ARTERY W/O ANG PCTRS Status: Chronic Qualifiers: Coronary Disease-Associated Artery/Lesion type: [place] artery Comment: Dr. Lyn consulted, cardiac markers neg x3 (2) Hyperlipidemia Code(s): E78.5 - HYPERLIPIDEMIA, UNSPECIFIED Status: Chronic (3) Hypertension Code(s): I10 - ESSENTIAL (PRIMARY) HYPERTENSION Status: Chronic Qualifiers: Hypertension type: essential hypertension Qualified Code(s): I10 - Essential (primary) hypertension Comment: Running a bit high this AM, bradycardic so will add hydralazine (4) Unstable angina Status: Acute (5) Cervicalgia Code(s): M54.2 - CERVICALGIA Status: Chronic Plan: Lidocaine patches, ,pain meds, Xanax - Plan cont current plan of care Dr. Lyn is performing heart catherization tomorrow. -: We will continue to monitor, repeat labs in AM * .
[2018-10-12] MEDS ORDERED: Communication Order-Pharmacy FS SCH (17:30)
--- NOTE | 2018-10-12 17:50 | PRG ---
DATE OF SERVICE: 10/12/2018 SUBJECTIVE: Mr. Horn feels better today. He is not having chest pressure, still feels lightheaded. His heart rate even at 9 o'clock this morning was still 50, but now it is in the mid 60s. OBJECTIVE: LUNGS: Clear. CARDIAC: Normal S1, normal S2. ABDOMEN: Soft and nontender. EXTREMITIES: There is no edema. ASSESSMENT: 1. Recent episodes of resting angina. 2. Sinus bradycardia, resolved, off beta blockers. 3. Dizziness and lightheadedness, probably related to more normal blood pressure. Recently his blood pressure has been very high, now in the normal range. Feels more lightheaded when he stands up. 4. Peripheral vascular disease. PLAN: Proceed to cardiac catheterization tomorrow. We will try to go from the left leg. He has peripheral vascular disease with ostial stenosis in the right iliac. Explained to the patient that we will repeat the arteriogram to evaluate severity of stenosis. It may be feasible to re-stent the right coronary artery, but it may be very difficult or impossible to re-engage the stent that extends back into the aorta for 15 mm. If were unable to engage the stents, then the only option will be continued medical therapy versus single vessel bypass if there is no other obstructive disease. I discussed the risk and again with the patient and family. This risk of stroke, heart attack, iodine allergy, loss of blood supply to leg or kidney, and rare cases emergency surgery. They understand that they can be of additional re-narrowing of the stent, even if this successfully places, also a clotting can occur. They understands he is at increased risk due to peripheral vascular disease and some calcium in his coronary arteries. I will proceed tomorrow morning. Job ID: [id number] [facility]
[2018-10-12] MEDS ORDERED: Enoxaparin Sodium 40 MG/0.4 ML SYRINGE SC SCH (20:00)
[2018-10-12] MEDS: Nicotine 21 MG PATCH TD SCH (20:32)
[2018-10-12] MEDS: Aspirin Chewable 81 MG TAB PO SCH (20:32)
[2018-10-12] MEDS: Rosuvastatin 10 MG TAB PO SCH (20:33)
[2018-10-12] MEDS: Lidocaine 5% Patch TD SCH (20:33)
[2018-10-12] MEDS: ALPRAZolam 0.25 MG TAB PO PRN (21:42)
[2018-10-13] MEDS ORDERED: Bisacodyl 10 MG SUPP PR PRN (01:27)
[2018-10-13] MEDS ORDERED: Fleet Enema 133 ML BOT PR PRN (01:27)
[2018-10-13] MEDS ORDERED: Diazepam 5 MG TAB PO SCH (06:00)
[2018-10-13] MEDS: Nitroglycerin 2% Ointment 1 INCH/1 GM Packet TOP SCH ×2 (06:13→14:05)
[2018-10-13] MEDS: Sodium Chloride 0.9% 1,000 ML IV SCH ×2 (06:13→18:05)
[2018-10-13] MEDS: HYDROcodone/Acetaminophen 10/325 mg Tablet PO PRN (06:23)
[2018-10-13] MEDS: Lidocaine Patch Removal 1 EACH TOP SCH (06:26)
[2018-10-13] MEDS ORDERED: Lidocaine 1% (PF) 30 ML VIAL ONE (07:22)
[2018-10-13] MEDS ORDERED: Midazolam HCl 2 mg/2 ml Vial ONE (07:58)
[2018-10-13] MEDS ORDERED: Fentanyl 100 MCG/2 ML VIAL ONE (07:58)
[2018-10-13] MEDS ORDERED: Heparin 10,000 UNITS/1 ML VIAL ONE (08:30)
[2018-10-13] MEDS ORDERED: Nitroglycerin 0.4 MG TAB (25 Tab Bottle) SL PRN (09:34)
[2018-10-13] MEDS ORDERED: Sodium Chloride 0.9% 200 ML IV PRN (09:34)
[2018-10-13] MEDS ORDERED: Acetaminophen/Codeine 30-300mg Tablet PO PRN ×2 (09:34)
[2018-10-13] MEDS: Ubidecarenone 50 MG CAP PO SCH (10:49)
[2018-10-13] MEDS: Senokot S 8.6-50 MG TAB PO SCH (10:49)
[2018-10-13] MEDS: Amlodipine 5 MG TAB PO SCH (10:55)
[2018-10-13] MEDS: Nicotine 21 MG PATCH TD SCH (10:57)
[2018-10-13] MEDS ORDERED: Nicotine 21 MG PATCH TD SCH (11:00)
[2018-10-13] MEDS ORDERED: ALPRAZolam 0.25 MG TAB PO PRN (11:12)
--- NOTE | 2018-10-13 12:47 | OP ---
DATE OF PROCEDURE: 10/13/2018 PROCEDURES PERFORMED: Left heart catheterization, angiogram of the left femoral. INDICATION: Chest pain, coronary artery disease. DESCRIPTION OF PROCEDURE: The patient was brought to the cardiac catheterization lab in a fasting state. He was sedated, prepped and draped in the usual fashion. The left groin was anesthetized with 1% Xylocaine. Under fluoroscopy, there was obviously some calcium in the left femoral artery. The patient had a previously known ostial right iliac stenosis. The previous catheterization had revealed the previous iliac lesion. Under ultrasound guidance, a 5-Libyan micropuncture kit was used to obtain access and then a 5-Libyan sheath was placed. It required Wholey wire to get into the aorta. Under ultrasound guidance, I found an area of the vessel where it looked like it was not heavily calcified and the sheath went relatively easily. Following that, coronary angiography was done with Carlito left 4 catheter. In the right coronary, multiple catheters were used. The patient had a known stent in the ostial right coronary artery with he had previous stenting due to ostial right coronary disease. This stent extended a couple of millimeter back into the aorta. Multiple catheters were tried including a 5-Libyan JR4, which pointed down too much. Internal mammary catheter 4 and 5-Libyan, neither which would cannulate. Ultimately, there were adequate pictures and probably one image, which looked like the 4-Libyan JR4 catheter was inside the stent, showed approximately 70% stenosis in the proximal portion of the stent, somewhat hazy, with 50% lesion in the mid segment and some mild plaque distally. Left ventriculogram was done with an angled pigtail. All exchanges were done over exchange wire. Sheath injections were done in multiple views in the left femoral, indicated there was approximately 60% heavily calcified disease in the left femoral artery and just below the bifurcation. I was reluctant to place a larger sheath. I think it would be extremely difficult if not impossible to cannulate the stent with a guide catheter. I am also reluctant to place a larger sheath in the left femoral. ASSESSMENT: 1. Calcified disease in the right coronary artery as outlined above with in-stent restenosis. 2. Peripheral vascular disease. 3. Normal left ventricular function. 4. Mild nonobstructive plaque in the other vessels as outlined above with 20% calcified left main, 10% LAD, 10% circumflex. RECOMMENDATION: Consideration for bypass will need to be given in view of the continued chest pressure. Job ID: [id number]
[2018-10-13] MEDS ORDERED: Iopamidol 370 76% 100 ML VIAL ONE (13:27)
[2018-10-13 15:36] VITALS: TEMP 98.5
[2018-10-13 15:39] VITALS: BP 140/63
--- NOTE | 2018-10-13 18:17 | CON ---
DATE OF CONSULTATION: HISTORY OF PRESENT ILLNESS: This is a 73-year-old gentleman admitted to the hospital earlier this week with complaints of chest pressure, bradycardia, dizziness, and near syncope. He recently had a change in his medications with the addition of metoprolol for nighttime hypertension and subsequently had these symptoms. His troponins were negative. His EKG showed no acute changes. He was seen by Dr. Lyn and underwent cardiac catheterization today. He had heavily calcified LAD and circumflex, left main with minimal disease in the obstructive pattern. His right coronary artery had diffuse calcification extending throughout the main right coronary artery and into the posterolateral branch. He had 50% to 70% obstructive lesion within the proximal right coronary stent, which had been placed in 2014. I reviewed his cardiac cath from February of 2018, and his stenosis appeared very similar and the stent had been present in February. PAST MEDICAL HISTORY: Positive for hypertension, dyslipidemia, and a longstanding smoking history, although he has cut back to about a pack a day currently. His past medical history also includes carotid artery disease, for which he has undergone bilateral carotid endarterectomy. He also has asymptomatic peripheral arterial disease with previous catheterization suggestive of a right common iliac stenosis and then the catheterization today suggesting some left common femoral stenosis, although neither appears severe on a CT angiogram done on this admission. PAST SURGICAL HISTORY: Includes right clavicle surgery, right shoulder surgery, neck surgery, back surgery, cholecystectomy. REVIEW OF SYSTEMS: The patient complains of neck pain and ringing in his ears. He has undergone a recent MRI via Dr. Mclain, however, he is not sure of the results and is wishing to get an appointment with the neurosurgeon. Dr. Holm did his previous neck surgery, however, he is not sure if he wants to see a different neurosurgeon. SOCIAL HISTORY: As mentioned, the patient smokes about a pack of cigarettes a day. He is accompanied tonight by his daughter, but he is and his has had thoracoabdominal aneurysm surgery in [place] as well as an EVAR by Dr. Phan many years ago. 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 ALLERGIES: HE HAS NO KNOWN ALLERGIES. MEDICATIONS: Prior to admission include; 1. Xanax. 2. Aspirin. 3. MiraLAX. 4. Metoprolol. 5. Crestor. 6. Hydrocodone. 7. Plavix. 8. Amlodipine. 9. CoQ. PHYSICAL EXAMINATION: GENERAL: On examination, he is alert and cooperative gentleman. VITAL SIGNS: Recorded height 5 feet 11 inches, weight 175. Blood pressure and his heart rates anywhere from 55 to 70. NECK: Examination of his neck reveals a well-healed incision with bruits. LUNGS: Clear to auscultation. CARDIAC: Rhythm is regular. No murmurs. ABDOMEN: Soft, nontender with no aneurysm. EXTREMITIES: He has no peripheral edema. He has palpable femoral and posterior tibial pulses bilaterally. At this time, the patient has essentially single-vessel disease with a small PDA and a small posterolateral system. His option of coronary bypass grafting to perhaps the PDA or proximal posterolateral is being entertained. The patient states that his chest pressure is not a very common occurrence and he is more concerned about his neck pain and his near syncopal episode from his bradycardia. I have explained that surgical intervention may improve his anginal symptoms, which is his chest pressure, but this is not going to have any effect on his blood pressure or heart rate. I also explained that life expectancy is probably unchanged with coronary bypass grafting to the right coronary artery. If he elects to have surgical intervention, which seems unlikely at this time, then he will need to be off his Plavix for a week. If he ends up having an MRI that is suggestive of need for further cervical spine surgery, then he may need a stress test to evaluate whether surgical intervention with an anesthetic can be undertaken safely. Job ID: [id number]
--- NOTE | 2018-10-13 21:59 | DIS ---
DATE OF ADMISSION: 10/11/2018 DATE OF DISCHARGE: 10/13/2018 DISCHARGE DIAGNOSES: 1. Symptomatic bradycardia. 2. Coronary artery disease. 3. Ongoing tobacco abuse. 4. Hypertension. 5. Hyperlipidemia. HISTORY OF PRESENT ILLNESS: The patient is a 73-year-old male who presented to the hospital with complaint of chest pain and noted bradycardia. The patient had recently been experiencing significant hypertension and presented to his PCP who started him on a beta maru. He subsequently had some chest discomfort and nausea with lightheadedness noted and his heart rate was in the 30s at home. Subsequently presented to the emergency department where he had heart rate in the 50s. Had a D-dimer of 0.46. CTA was negative for PE. Troponins were negative. BNP was normal. HOSPITAL COURSE: The patient was admitted to the hospital and was placed on telemetry. Beta maru was held. Serial troponins negative, however, he was felt to have some unstable angina in consultation with Dr. Lyn; therefore, the patient underwent a heart catheterization on 10/13/2018. At that time, the patient was noted to have significant in-stent stenosis of the right coronary with nonobstructive disease in the other vessels. This could not be addressed with catheter based intervention and the patient was noted to have some femoral plaque as well, making it difficult to upsize the sheath. Therefore, the catheterization was ended and the patient was subsequently seen in consultation by Dr. Sharma. He felt as though the patient may not be a good candidate for surgical intervention given the single-vessel disease in a patient with ongoing smoking and some other nonassociated somatic complaints; therefore, we felt the patient was stable for discharge home to have follow up as an outpatient for further discussion. PHYSICAL EXAMINATION: VITAL SIGNS: On the day of discharge, temperature is 98.5, pulse 70, respirations 14, O2 saturations 96% on room air, and BP 140/63. GENERAL: He is awake, alert, oriented, pleasant, cooperative. HEART: Regular rate and rhythm without murmurs. LUNGS: Clear bilaterally. ABDOMEN: Soft, nontender. EXTREMITIES: No cyanosis, clubbing, or edema. DISPOSITION: The patient is discharged to home. DISCHARGE MEDICATIONS: He will be on: 1. Xanax 0.25 b.i.d. 2. Aspirin 81 mg daily. 3. MiraLAX p.r.n. 4. Crestor 10 mg q.p.m. 5. Vitamin D 1000 units at bedtime. 6. [place] 10/325 p.r.n. 7. Plavix 75 mg daily. 8. Amlodipine 5 mg b.i.d. 9. CoQ10 100 mg q.a.m. He is to discontinue the beta blockers. DISCHARGE INSTRUCTIONS: He will follow up with Dr. Mclain and with Dr. Sharma. He is to have a heart healthy diet. His activity is as tolerated. He can return to the hospital should he have any problems prior to the time of his followup. Time spent in discharge activities, including face to face time with patient, was 35 min. Job ID: [id number] MTDD
== END 2018-10-13 19:20 | disposition home or self-care (01) | DRG 287 ==
LOC: ERS 13:27 → 2SW 16:27 → OBSVTOIN 10-11 13:53 → 2NO 10-12 15:02
PROVIDERS: ADMIT Internal Medicine; ATTEND Internal Medicine
PROC: 4A023N7 Measurement of Cardiac Sampling and Pressure, Left Heart, Percutaneous Approach (ICD-10-PCS; principal; 2018-10-13)
PROC: B2111ZZ Fluoroscopy of Multiple Coronary Arteries using Low Osmolar Contrast (ICD-10-PCS; 2018-10-13)
PROC: B2151ZZ Fluoroscopy of Left Heart using Low Osmolar Contrast (ICD-10-PCS; 2018-10-13)
DX: T82.855A Stenosis of coronary artery stent, initial encounter (principal); I25.110 Atherosclerotic heart disease of native coronary artery with unstable angina pectoris; R00.1 Bradycardia, unspecified; I10 Essential (primary) hypertension; E78.5 Hyperlipidemia, unspecified; N40.0 Benign prostatic hyperplasia without lower urinary tract symptoms; I73.9 Peripheral vascular disease, unspecified; F17.210 Nicotine dependence, cigarettes, uncomplicated; I70.8 Atherosclerosis of other arteries; Z95.5 Presence of coronary angioplasty implant and graft; Z79.82 Long term (current) use of aspirin; Z79.899 Other long term (current) drug therapy; Z88.2 Allergy status to sulfonamides; Z88.1 Allergy status to other antibiotic agents; Z88.0 Allergy status to penicillin
CPT/HCPCS: 36415; 71275; 76942; 80048; 80053; 82550; 83880; 84484; 85025; 85347; 85379; 93005; 93458; 94760; 99152; 99153; C1769; J1644; J1650; J2001; J2250; J3010; Q9966; Q9967

== ENCOUNTER 2020-07-20 13:44 | Outpatient (CLI) | payer MEDICARE | END 2020-07-20 13:45 | disposition home or self-care (01) | LOC: BICCT 13:44 | PROVIDERS: ATTEND Internal Medicine | DX: Z12.2 Encounter for screening for malignant neoplasm of respiratory organs (principal); F17.210 Nicotine dependence, cigarettes, uncomplicated; J43.2 Centrilobular emphysema | CPT/HCPCS: 71271 ==

== ENCOUNTER 2021-03-08 00:30 | Observation (INO) | payer MEDICARE ==
[2021-03-08 02:27] VITALS: BMI 24.5
[2021-03-08] MEDS ORDERED: Nitroglycerin 0.4 MG TAB (25 Tab Bottle) SL PRN (03:14)
[2021-03-08] MEDS ORDERED: Sodium Chloride 0.9% 1,000 ML IV SCH (03:15)
[2021-03-08] MEDS ORDERED: Senokot S 8.6-50 MG TAB PO PRN (03:16)
[2021-03-08] MEDS ORDERED: Ondansetron PF 4 MG/2 ML Vial IVP PRN (03:16)
[2021-03-08] MEDS ORDERED: Acetaminophen 325 MG TAB PO PRN (03:16)
[2021-03-08] MEDS ORDERED: Ondansetron ODT 4 MG TAB PO PRN (03:16)
[2021-03-08] MEDS ORDERED: Nicotine 21 MG PATCH TD SCH (03:30)
[2021-03-08 03:44] LABS: #Basophils 0.1 thou/uL (0.0-0.2); #Eosinphils 0.4 thou/uL (0.0-0.7); #Lymphocytes 2.2 thou/uL (1.20-3.40); #Monocytes 0.9 thou/uL (0.11-0.59); %Basophils 1.2 % (0.0-1.0); %Eosinophils 5.9 % (0.0-10.0); %Lymphocytes 33.3 % (21.0-51.0); %Monocytes 13.2 % (0.0-10.0); %Neutrophils 46.4 % (42.0-75.0); Hemoglobin 15.7 g/dL (14.0-18.0); Mean Corpuscular HGB CONC 32.2 g/dL (32.0-36.0); Mean Corpuscular Hemoglobin 31.6 pg (27.0-31.0); Mean Platelet Volume 7.8 fL (7.4-10.4); Platelet Count 192 thou/uL (130-400); Red Blood Cell (RBC) Count 4.97 mill/uL (4.70-6.10); White Blood Cell (WBC) Count 6.5 thou/uL (4.8-10.8)
[2021-03-08 04:03] LABS: Anion Gap 13 mmol/L (10-20); BUN (Urea Nitrogen) 16 mg/dL (8.4-25.7); Calc. Creatinine Clearance 75 mL/min (70-130); Calcium 9.4 mg/dL (7.8-10.44); Carbon Dioxide 28 mmol/L (23-31); Cardiac Risk 3.3 (Less than 4.5); Chloride 100 mmol/L (98-107); Cholesterol 115 mg/dl (< 200 Desired); Glucose 94 mg/dL (83-110); HDL Cholesterol 35 mg/dL (>60 Neg Risk); LDL Cholesterol, Calculated 67 mg/dL; Potassium 3.6 mmol/L (3.5-5.1); Sodium 137 mmol/L (136-145); Triglycerides 67 mg/dL (Less than 150)
[2021-03-08 04:06] LABS: Troponin I Less than 0.010 ng/mL (< 0.028)
[2021-03-08 05:00] LABS: INR-International Normal Ratio 1.1; PTT 32.3 sec (22.9-36.1); Prothrombin Time 13.9 sec (12.0-14.7)
[2021-03-08 06:49] LABS: Troponin I Less than 0.010 ng/mL (< 0.028)
[2021-03-08 08:01] LABS: Bacteria/HPF None Seen HPF (None Seen); Bilirubin Negative (Negative); Blood, Urine Negative (Negative); Clarity Clear (Clear); Glucose, Urine (Dipstick) Normal (Negative); Ketone, Urine Negative (Negative); Leukocyte Negative Leu/uL (Negative); Nitrite Negative (Negative); Protein, Urine (Dipstick) Negative (Neg-Trace); RBC/HPF 0-3 HPF (0-3); Specific Gravity, Urine 1.008 (1.002-1.036); Squamous Epithelial None Seen HPF (0-3); Urobilinogen Normal mg/dL (Less than 2); WBC/HPF 0-3 HPF (0-3); pH, Urine 6.5 (5.0-9.0)
[2021-03-08 08:34] LABS: Urine Culture Reflex No No
[2021-03-08] MEDS ORDERED: Regadenoson 0.4 MG/5 ML SYRINGE ONE (09:04)
[2021-03-08 11:51] VITALS: BP 144/65; TEMP 98.1
[2021-03-11] MEDS ORDERED: FLU VACC QS2021-22(65YR UP)/PF 240 MCG/0.7 ML SYRINGE IM ONE (09:00)
== END 2021-03-08 15:45 | disposition home or self-care (01) ==
LOC: 2SW 01:54
PROVIDERS: ADMIT Student in an Organized Health Care Education/Training Program; ATTEND Internal Medicine
DX: R07.9 Chest pain, unspecified (principal); R60.0 Localized edema; I11.9 Hypertensive heart disease without heart failure; I25.10 Atherosclerotic heart disease of native coronary artery without angina pectoris; E78.5 Hyperlipidemia, unspecified; G89.29 Other chronic pain; M54.2 Cervicalgia; M54.9 Dorsalgia, unspecified; F17.210 Nicotine dependence, cigarettes, uncomplicated; I07.1 Rheumatic tricuspid insufficiency; Z79.02 Long term (current) use of antithrombotics/antiplatelets; Z79.82 Long term (current) use of aspirin; Z79.899 Other long term (current) drug therapy; Z88.0 Allergy status to penicillin; Z88.1 Allergy status to other antibiotic agents; Z88.2 Allergy status to sulfonamides; Z95.5 Presence of coronary angioplasty implant and graft
CPT/HCPCS: 78452; 80048; 80061; 81001; 84484 ×2; 85025; 85610; 85730; 93005; 93017; 93306; 94760; A9500; G0378; 36415; 93010; J2785; J7050

== ENCOUNTER 2022-04-03 11:55 | Emergency (ER) | payer MEDICARE ==
[2022-04-03 13:30] LABS: Clarity Opaque (Clear)
[2022-04-03 13:31] LABS: #Eosinphils 0.3 thou/uL (0.0-0.7); #Lymphocytes 1.3 thou/uL (1.20-3.40); #Monocytes 1.1 thou/uL (0.11-0.59); #Neutrophils 5.3 thou/uL (1.40-6.50); %Basophils 0.3 % (0.0-1.0); %Eosinophils 3.5 % (0.0-10.0); %Lymphocytes 16.5 % (21.0-51.0); %Monocytes 13.5 % (0.0-10.0); %Neutrophils 66.2 % (42.0-75.0); Mean Corpuscular HGB CONC 33.4 g/dL (32.0-36.0); Mean Corpuscular Hemoglobin 32.8 pg (27.0-31.0); Mean Corpuscular Volume 98.1 fl (78.0-98.0); Platelet Count 175 10x3/uL (130-400); RBC Distribution Width 12.3 % (11.5-14.5); Red Blood Cell (RBC) Count 4.57 mill/uL (4.70-6.10)
[2022-04-03 13:33] LABS: Specific Gravity, Urine 1.015 (1.002-1.036); pH, Urine 7.6 (5.0-9.0)
[2022-04-03 13:35] LABS: Bilirubin Unable to Interpret (Negative); Blood, Urine Large (Negative); Glucose, Urine (Dipstick) Negative (Negative); Ketone, Urine Unable to Interpret mg/dL (Negative); Leukocyte Unable to Interpret (Negative); Nitrite Unable to Interpret (Negative); Protein, Urine (Dipstick) Unable to Interpret mg/dL (Neg-Trace); Urobilinogen UNABLE TO INTERPRET mg/dL (Less than 2)
[2022-04-03 13:39] LABS: RBC/HPF Greater than 50 HPF (0-3)
[2022-04-03 13:40] LABS: Bacteria/HPF None Seen HPF (None Seen); Squamous Epithelial 0-3 HPF (0-3); Transitional Epithelial 0-3 HPF (None Seen); WBC/HPF 21-50 HPF (0-3)
[2022-04-03 13:58] LABS: INR-International Normal Ratio 1.1; Prothrombin Time 14.2 sec (12.0-14.7)
[2022-04-03 13:59] LABS: ALT (SGPT) 18 U/L (8-55); AST (SGOT) 16 U/L (5-34); Albumin 4.2 g/dL (3.4-4.8); Alkaline Phosphatase 49 U/L (40-110); Anion Gap 13 mmol/L (10-20); BUN (Urea Nitrogen) 13 mg/dL (8.4-25.7); Bilirubin, Total 1.3 mg/dL (0.2-1.2); Calc. Creatinine Clearance 0 mL/min (70-130); Calcium 9.6 mg/dL (7.8-10.44); Carbon Dioxide 27 mmol/L (23-31); Chloride 103 mmol/L (98-107); Estimated GFR 78; Globulin 2.2 g/dL (2.4-3.5); Glucose 91 mg/dL (83-110); Lipase 10 U/L (8-78); PTT 34.2 sec (22.9-36.1); Protein, Total 6.4 g/dL (5.8-8.1); Sodium 139 mmol/L (136-145)
== END 2022-04-03 15:04 | disposition home or self-care (01) ==
LOC: ERS 11:55
DX: R31.0 Gross hematuria (principal); N39.0 Urinary tract infection, site not specified; K21.9 Gastro-esophageal reflux disease without esophagitis; E78.00 Pure hypercholesterolemia, unspecified; I10 Essential (primary) hypertension; J44.9 Chronic obstructive pulmonary disease, unspecified; F17.210 Nicotine dependence, cigarettes, uncomplicated; Z79.82 Long term (current) use of aspirin
CPT/HCPCS: 36415; 74176; 80053; 81003; 81015; 82550; 83690; 85025; 85610; 85730; 86850; 86900; 86901; 87086

== ENCOUNTER 2022-04-05 01:16 | Observation (INO) | payer MEDICARE ==
[2022-04-05] MEDS ORDERED: Aspirin Chewable 81 MG TAB ONE ×2 (02:04→09:20)
[2022-04-05 02:47] LABS: #Basophils 0.1 thou/uL (0.0-0.2); #Eosinphils 0.2 thou/uL (0.0-0.7); #Lymphocytes 1.5 thou/uL (1.20-3.40); #Monocytes 0.6 thou/uL (0.11-0.59); #Neutrophils 1.9 thou/uL (1.40-6.50); %Basophils 1.6 % (0.0-1.0); %Eosinophils 5.2 % (0.0-10.0); %Lymphocytes 34.5 % (21.0-51.0); %Monocytes 14.3 % (0.0-10.0); %Neutrophils 44.4 % (42.0-75.0); Hemoglobin 15.1 g/dL (14.0-18.0); Mean Corpuscular HGB CONC 33.9 g/dL (32.0-36.0); Mean Corpuscular Hemoglobin 32.8 pg (27.0-31.0); Mean Corpuscular Volume 96.6 fl (78.0-98.0); Mean Platelet Volume 8.1 fL (7.4-10.4); Platelet Count 169 10x3/uL (130-400); RBC Distribution Width 12.1 % (11.5-14.5); White Blood Cell (WBC) Count 4.2 10x3/uL (4.8-10.8)
[2022-04-05 03:07] LABS: ALT (SGPT) 16 U/L (8-55); AST (SGOT) 20 U/L (5-34); Albumin 4.1 g/dL (3.4-4.8); Alkaline Phosphatase 42 U/L (40-110); Anion Gap 13 mmol/L (10-20); BUN (Urea Nitrogen) 13 mg/dL (8.4-25.7); Bilirubin, Total 0.4 mg/dL (0.2-1.2); Calc. Creatinine Clearance 0 mL/min (70-130); Carbon Dioxide 23 mmol/L (23-31); Chloride 107 mmol/L (98-107); Estimated GFR 89; Globulin 2.7 g/dL (2.4-3.5); Glucose 96 mg/dL (83-110); Potassium 3.2 mmol/L (3.5-5.1); Protein, Total 6.8 g/dL (5.8-8.1); Sodium 140 mmol/L (136-145)
[2022-04-05] MEDS ORDERED: Potassium Chloride 20 MEQ TAB ONE (03:40)
[2022-04-05] MEDS ORDERED: Nitroglycerin 0.4 MG TAB (25 Tab Bottle) SL PRN (04:35)
[2022-04-05 05:17] LABS: Bilirubin Negative (Negative); Blood, Urine Negative (Negative); Clarity Clear (Clear); Glucose, Urine (Dipstick) Normal (Negative); Ketone, Urine Negative (Negative); Leukocyte Negative Leu/uL (Negative); Nitrite Negative (Negative); Protein, Urine (Dipstick) Negative (Neg-Trace); Specific Gravity, Urine 1.005 (1.002-1.036); Urobilinogen Normal mg/dL (Less than 2); pH, Urine 7.5 (5.0-9.0)
[2022-04-05 05:32] LABS: SARS-CoV-2 NAA Rapid Test Not Detected (NotDetected)
[2022-04-05] MEDS ORDERED: Amlodipine 5 MG TAB ONE (09:20)
[2022-04-05] MEDS ORDERED: Clopidogrel Bisulfate 75 MG TAB ONE (09:20)
[2022-04-05] MEDS: Amlodipine 5 MG TAB PO SCH ×2 (09:24→20:20)
[2022-04-05] MEDS: Aspirin Chewable 81 MG TAB PO SCH (09:26)
[2022-04-05] MEDS: Clopidogrel Bisulfate 75 MG TAB PO SCH (09:27)
[2022-04-05 09:45] LABS: Troponin I 0.016 ng/mL (< 0.028)
[2022-04-05] MEDS ORDERED: Senokot S 8.6-50 MG TAB PO SCH (10:15)
[2022-04-05] MEDS ORDERED: ALPRAZolam 0.25 MG TAB PO SCH (11:15)
[2022-04-05] MEDS ORDERED: Ipratropium/Albuterol 3 ML NEB NEB SCH (11:30)
[2022-04-05] MEDS ORDERED: ALPRAZolam 0.25 MG TAB ONE (12:02)
[2022-04-05] MEDS ORDERED: methylPREDNISolone Sod Succ 40 MG VIAL IVP SCH (12:30)
[2022-04-05] MEDS: Ipratropium/Albuterol 3 ML NEB NEB SCH ×2 (15:14→22:31)
[2022-04-05] MEDS ORDERED: Mometasone/Formoterol 200/5 60 PUFF INH SCH (15:15)
[2022-04-05 15:26] VITALS: BMI 26.2
[2022-04-05] MEDS: methylPREDNISolone Sod Succ 40 MG VIAL IVP SCH (20:20)
[2022-04-05] MEDS: ALPRAZolam 0.25 MG TAB PO SCH (20:20)
[2022-04-05] MEDS: Senokot S 8.6-50 MG TAB PO SCH (20:21)
[2022-04-05] MEDS ORDERED: Rosuvastatin 10 MG TAB PO SCH (21:00)
[2022-04-05] MEDS: Mometasone/Formoterol 200/5 60 PUFF INH SCH (22:29)
[2022-04-06] MEDS ORDERED: Melatonin 3 MG TAB PO PRN (00:59)
[2022-04-06 07:35] LABS: #Lymphocytes 0.6 thou/uL (1.20-3.40); #Monocytes 0.1 thou/uL (0.11-0.59); #Neutrophils 4.3 thou/uL (1.40-6.50); %Basophils 0.3 % (0.0-1.0); %Eosinophils 0.1 % (0.0-10.0); %Lymphocytes 12.7 % (21.0-51.0); %Monocytes 1.7 % (0.0-10.0); %Neutrophils 85.2 % (42.0-75.0); Hemoglobin 15.5 g/dL (14.0-18.0); Mean Corpuscular HGB CONC 34.5 g/dL (32.0-36.0); Mean Corpuscular Hemoglobin 33.7 pg (27.0-31.0); Mean Corpuscular Volume 97.7 fl (78.0-98.0); Platelet Count 189 10x3/uL (130-400); RBC Distribution Width 12.1 % (11.5-14.5); Red Blood Cell (RBC) Count 4.59 mill/uL (4.70-6.10)
[2022-04-06 07:39] LABS: Hemoglobin A1c 6.2 % (4.0-6.0)
[2022-04-06] MEDS: Mometasone/Formoterol 200/5 60 PUFF INH SCH (07:45)
[2022-04-06] MEDS: Ipratropium/Albuterol 3 ML NEB NEB SCH (07:46)
[2022-04-06 08:02] LABS: Anion Gap 11 mmol/L (10-20); BUN (Urea Nitrogen) 11 mg/dL (8.4-25.7); Calc. Creatinine Clearance 98 mL/min (70-130); Calcium 9.2 mg/dL (7.8-10.44); Carbon Dioxide 23 mmol/L (23-31); Cardiac Risk 3.2 (Less than 4.5); Chloride 108 mmol/L (98-107); Cholesterol 144 mg/dl (< 200 Desired); Estimated GFR 92; Glucose 139 mg/dL (83-110); HDL Cholesterol 45 mg/dL (>60 Neg Risk); LDL Cholesterol, Calculated 89 mg/dL; Magnesium 2.1 mg/dL (1.6-2.6); Potassium 4.1 mmol/L (3.5-5.1); Sodium 138 mmol/L (136-145); Triglycerides 51 mg/dL (Less than 150)
[2022-04-06 08:09] VITALS: BP 137/66; TEMP 97.9
[2022-04-06] MEDS: methylPREDNISolone Sod Succ 40 MG VIAL IVP SCH (08:40)
[2022-04-06] MEDS: Aspirin Chewable 81 MG TAB PO SCH (08:41)
[2022-04-06] MEDS: Clopidogrel Bisulfate 75 MG TAB PO SCH (08:41)
[2022-04-06] MEDS: ALPRAZolam 0.25 MG TAB PO SCH (08:41)
[2022-04-06] MEDS: Amlodipine 5 MG TAB PO SCH (08:41)
[2022-04-06] MEDS: Senokot S 8.6-50 MG TAB PO SCH (08:42)
== END 2022-04-06 09:55 | disposition home or self-care (01) ==
LOC: ERS 01:16 → ERHOLD 04:12 → SURG B 14:39
PROVIDERS: ADMIT Family Medicine; ATTEND Family Medicine
DX: J44.1 Chronic obstructive pulmonary disease with (acute) exacerbation (principal); R07.2 Precordial pain; F41.9 Anxiety disorder, unspecified; E87.6 Hypokalemia; I11.0 Hypertensive heart disease with heart failure; I50.9 Heart failure, unspecified; I25.10 Atherosclerotic heart disease of native coronary artery without angina pectoris; I73.9 Peripheral vascular disease, unspecified; F17.210 Nicotine dependence, cigarettes, uncomplicated; K21.9 Gastro-esophageal reflux disease without esophagitis; E78.00 Pure hypercholesterolemia, unspecified; N30.90 Cystitis, unspecified without hematuria; Z79.02 Long term (current) use of antithrombotics/antiplatelets; Z79.82 Long term (current) use of aspirin; Z79.899 Other long term (current) drug therapy; Z88.0 Allergy status to penicillin; Z88.1 Allergy status to other antibiotic agents; Z88.2 Allergy status to sulfonamides; Z20.822 Contact with and (suspected) exposure to COVID-19
CPT/HCPCS: 71045; 80048; 80053; 80061; 81003; 83036; 83735; 83880; 84443; 84484 ×2; 85025 ×2; 93005; 94640 ×5; 94664; 94760 ×2; 96374; 96376; 99285; G0378 ×3; U0002; 36415; J2920; J7620

== ENCOUNTER 2022-04-24 11:30 | Emergency (ER) | payer MEDICARE ==
[2022-04-24 12:15] LABS: #Eosinphils 0.3 thou/uL (0.0-0.7); #Lymphocytes 1.3 thou/uL (1.20-3.40); #Monocytes 0.8 thou/uL (0.11-0.59); %Basophils 0.5 % (0.0-1.0); %Eosinophils 4.5 % (0.0-10.0); %Lymphocytes 20.5 % (21.0-51.0); %Monocytes 12.1 % (0.0-10.0); %Neutrophils 62.3 % (42.0-75.0); Hemoglobin 15.4 g/dL (14.0-18.0); Mean Corpuscular HGB CONC 32.7 g/dL (32.0-36.0); Mean Corpuscular Hemoglobin 31.9 pg (27.0-31.0); Mean Corpuscular Volume 97.3 fl (78.0-98.0); Mean Platelet Volume 8.3 fL (7.4-10.4); Platelet Count 199 10x3/uL (130-400); RBC Distribution Width 11.9 % (11.5-14.5); Red Blood Cell (RBC) Count 4.82 mill/uL (4.70-6.10); White Blood Cell (WBC) Count 6.4 10x3/uL (4.8-10.8)
[2022-04-24 12:53] LABS: ALT (SGPT) 23 U/L (8-55); AST (SGOT) 18 U/L (5-34); Albumin 4.3 g/dL (3.4-4.8); Alkaline Phosphatase 44 U/L (40-110); Anion Gap 11 mmol/L (10-20); BUN (Urea Nitrogen) 21 mg/dL (8.4-25.7); Bilirubin, Total 0.6 mg/dL (0.2-1.2); Calc. Creatinine Clearance 0 mL/min (70-130); Calcium 10.2 mg/dL (7.8-10.44); Carbon Dioxide 29 mmol/L (23-31); Chloride 102 mmol/L (98-107); Estimated GFR 86; Globulin 2.8 g/dL (2.4-3.5); Glucose 101 mg/dL (83-110); Potassium 4.5 mmol/L (3.5-5.1); Protein, Total 7.1 g/dL (5.8-8.1); Sodium 137 mmol/L (136-145)
[2022-04-24] MEDS ORDERED: Iopamidol 370 76% 100 ML VIAL ONE (14:38)
[2022-04-24 15:02] LABS: Bilirubin Negative (Negative); Blood, Urine Negative (Negative); Clarity Clear (Clear); Glucose, Urine (Dipstick) Normal (Negative); Ketone, Urine Negative (Negative); Leukocyte Negative Leu/uL (Negative); Nitrite Negative (Negative); Protein, Urine (Dipstick) Negative (Neg-Trace); Specific Gravity, Urine 1.003 (1.002-1.036); Urobilinogen Normal mg/dL (Less than 2); pH, Urine 7.5 (5.0-9.0)
[2022-04-24] MEDS ORDERED: Morphine 4 MG/ML VIAL ONE (15:02)
[2022-04-24] MEDS ORDERED: Ondansetron PF 4 MG/2 ML Vial ONE (15:03)
== END 2022-04-24 17:08 | disposition home or self-care (01) ==
LOC: ERS 11:30
DX: R10.11 Right upper quadrant pain (principal); K21.9 Gastro-esophageal reflux disease without esophagitis; F17.210 Nicotine dependence, cigarettes, uncomplicated; E78.5 Hyperlipidemia, unspecified; E78.00 Pure hypercholesterolemia, unspecified; I10 Essential (primary) hypertension; J44.9 Chronic obstructive pulmonary disease, unspecified; Z79.899 Other long term (current) drug therapy
CPT/HCPCS: 36415; 74177; 80053; 81003; 84484; 85025; 93005; 96374; 96375; J2270; J2405

== ENCOUNTER 2022-07-21 13:25 | Outpatient (CLI) | payer MEDICARE ==
[2022-07-21 14:35] LABS: Hemoglobin 15.7 g/dL (13.5-17.5); Mean Corpuscular HGB CONC 33.7 g/dL (32.0-36.0); Mean Corpuscular Volume 92.1 fl (81.2-95.1); Mean Platelet Volume 10.4 fl (7.4-10.4); Platelet Count 212 10x3/uL (150-450); RBC Distribution Width 11.5 % (11.5-14.5); Red Blood Cell (RBC) Count 5.06 10x6/uL (4.32-5.72); White Blood Cell (WBC) Count 6.1 10x3/uL (3.5-10.5)
[2022-07-21 14:51] LABS: Anion Gap 15 mmol/L (10-20); BUN (Urea Nitrogen) 16 mg/dL (8.4-25.7); Calc. Creatinine Clearance 0 mL/min (70-130); Calcium 9.7 mg/dL (7.8-10.44); Carbon Dioxide 24 mmol/L (23-31); Chloride 102 mmol/L (98-107); Estimated GFR 80; Glucose 163 mg/dL (83-110); Sodium 137 mmol/L (136-145)
[2022-07-21 15:03] LABS: PTT 30.5 sec (22.0-33.0); Prothrombin Time 11.1 sec (9.5-12.1)
== END 2022-07-21 13:26 | disposition home or self-care (01) ==
LOC: LABBT 13:25
PROVIDERS: ATTEND Urology
DX: Z01.812 Encounter for preprocedural laboratory examination (principal); N40.1 Benign prostatic hyperplasia with lower urinary tract symptoms
CPT/HCPCS: 80048; 85027; 85610; 85730; 87086; 93005; 93010

== ENCOUNTER 2022-08-01 06:31 | Observation (INO) | payer MEDICARE ==
[2022-07-31 10:15] VITALS: BMI 26.3
[2022-08-01] MEDS ORDERED: Ipratropium/Albuterol 3 ML NEB ONE (09:08)
[2022-08-01] MEDS ORDERED: fentaNYL PF 100 MCG/2 ML SYRINGE ONE (09:19)
[2022-08-01] MEDS ORDERED: Phenylephrine 10 MG/ML VIAL ONE (09:19)
[2022-08-01] MEDS ORDERED: Levofloxacin 500 mg/D5W 100 ml Premix Bag ONE (09:55)
[2022-08-01] MEDS ORDERED: Dexamethasone 20 MG/5 ML VIAL ONE (10:08)
[2022-08-01] MEDS ORDERED: Lidocaine 1% PF 5 ML VIAL ONE (10:08)
[2022-08-01] MEDS ORDERED: PROPOFOL 200 MG/20 ML VIAL ONE (10:08)
[2022-08-01] MEDS ORDERED: Rocuronium Bromide 10 MG/ML (10ML VIAL) ONE (10:08)
[2022-08-01] MEDS ORDERED: Ondansetron PF 4 MG/2 ML Vial ONE (10:08)
[2022-08-01] MEDS ORDERED: Glycopyrrolate 0.2 MG/ML 5 ML SYRINGE ONE (10:08)
[2022-08-01] MEDS ORDERED: NEOSTIGMINE 3 MG/3 ML SYR 3 MG/3 ML SYRINGE ONE (10:08)
[2022-08-01] MEDS ORDERED: hydrALAZINE 20 MG/ML VIAL SLOW IVP PRN (11:41)
[2022-08-01] MEDS ORDERED: Hyoscyamine SL 0.125 MG TAB SL PRN (11:41)
[2022-08-01] MEDS ORDERED: diphenhydrAMINE 25 MG CAP PO PRN (11:41)
[2022-08-01] MEDS ORDERED: Oxybutynin 5 MG TAB PO PRN (11:41)
[2022-08-01] MEDS ORDERED: Ondansetron PF 4 MG/2 ML Vial IVP PRN (11:41)
[2022-08-01] MEDS ORDERED: Bisacodyl 10 MG SUPP PR PRN (11:41)
[2022-08-01] MEDS ORDERED: Morphine 2 MG/ML VIAL SLOW IVP PRN (11:41)
[2022-08-01] MEDS ORDERED: Mag-Al 1200 mg/1200 mg/30 ML UDCUP PO PRN (11:41)
[2022-08-01] MEDS ORDERED: Polyethylene Glycol 3350 17 GM Packet PO PRN (11:43)
[2022-08-01] MEDS ORDERED: HYDROcodone/Acetaminophen 10/325 mg Tablet PO PRN (11:43)
[2022-08-01] MEDS ORDERED: Albuterol 200 PUFF (6.7GM INHALER) INH PRN (11:43)
[2022-08-01] MEDS ORDERED: ALPRAZolam 0.25 MG TAB PO PRN (11:43)
[2022-08-01] MEDS ORDERED: traMADol HCl 50 MG TAB PO PRN (11:43)
[2022-08-01] MEDS ORDERED: fentaNYL 50 mcg/mL 1 mL Vial ONE ×4 (12:18→12:54)
[2022-08-01] MEDS: Mometasone/Formoterol 200/5 60 PUFF INH SCH (18:56)
[2022-08-01] MEDS ORDERED: Rosuvastatin 20 MG TAB PO SCH (21:00)
[2022-08-01] MEDS ORDERED: Latanoprost 0.005% Ophth Soln 2.5 ml Bottle EA EYE SCH (21:00)
[2022-08-01] MEDS: Docusate 100 MG CAP PO SCH (21:54)
[2022-08-01] MEDS: Acetaminophen 500 MG TAB PO PRN (21:54)
[2022-08-01] MEDS: Amlodipine 5 MG TAB PO SCH (21:56)
[2022-08-01] MEDS: Brimonidine Tartrate 0.2% Ophth Soln 5 ml Bottle EA EYE SCH (21:59)
[2022-08-02 05:48] LABS: Anion Gap 14 mmol/L (10-20); BUN (Urea Nitrogen) 14 mg/dL (8.4-25.7); Calc. Creatinine Clearance 86 mL/min (70-130); Calcium 9.7 mg/dL (7.8-10.44); Carbon Dioxide 22 mmol/L (23-31); Chloride 105 mmol/L (98-107); Estimated GFR 91; Glucose 119 mg/dL (83-110); Sodium 137 mmol/L (136-145)
[2022-08-02] MEDS: Mometasone/Formoterol 200/5 60 PUFF INH SCH (07:34)
[2022-08-02 08:11] VITALS: BP 141/64; TEMP 98.3
[2022-08-02] MEDS ORDERED: Linaclotide [Linzess] 72 MCG Capsule PO SCH (09:00)
[2022-08-02] MEDS ORDERED: Furosemide 20 MG TAB PO SCH (09:00)
[2022-08-02] MEDS ORDERED: Potassium Chloride 20 MEQ TAB PO SCH (09:00)
[2022-08-02] MEDS ORDERED: CO Q-10 CAPSULE 100 MG PO SCH (09:00)
[2022-08-02] MEDS ORDERED: Non-Formulary Item 1 EACH (Oxybutynin Chloride [Oxybutynin Chloride Er] 10 MG Tab.Er.24) PO SCH (09:00)
[2022-08-02] MEDS ORDERED: Oxybutynin ER 5 MG TAB PO SCH (09:00)
[2022-08-02] MEDS: Acetaminophen 500 MG TAB PO PRN (09:43)
[2022-08-02] MEDS: Amlodipine 5 MG TAB PO SCH (09:44)
[2022-08-02] MEDS: Docusate 100 MG CAP PO SCH (09:48)
[2022-08-02] MEDS: Brimonidine Tartrate 0.2% Ophth Soln 5 ml Bottle EA EYE SCH (10:27)
== END 2022-08-02 11:40 | disposition home or self-care (01) ==
LOC: SDC 06:31 → SURG A 11:41
PROVIDERS: ADMIT Urology; ATTEND Urology
PROC: 0VT08ZZ Resection of Prostate, Via Natural or Artificial Opening Endoscopic (ICD-10-PCS; principal; 2022-08-01)
DX: N40.1 Benign prostatic hyperplasia with lower urinary tract symptoms (principal); N13.8 Other obstructive and reflux uropathy; R33.8 Other retention of urine; N32.81 Overactive bladder; I25.10 Atherosclerotic heart disease of native coronary artery without angina pectoris; I10 Essential (primary) hypertension; E78.00 Pure hypercholesterolemia, unspecified; M19.90 Unspecified osteoarthritis, unspecified site; J45.909 Unspecified asthma, uncomplicated; F17.220 Nicotine dependence, chewing tobacco, uncomplicated; Z79.2 Long term (current) use of antibiotics; Z79.899 Other long term (current) drug therapy; Z88.0 Allergy status to penicillin; Z88.1 Allergy status to other antibiotic agents; Z88.2 Allergy status to sulfonamides; Z95.5 Presence of coronary angioplasty implant and graft
CPT/HCPCS: 52630; 80048; 94640 ×2; J3010; 36415; 88305; J1100; J1956; J2370; J2405; J2704; J7620

== ENCOUNTER 2023-06-05 13:40 | Outpatient (CLI) | payer MEDICARE | END 2023-06-05 13:41 | disposition home or self-care (01) | LOC: CT 13:40 | PROVIDERS: ATTEND Internal Medicine | DX: Z12.2 Encounter for screening for malignant neoplasm of respiratory organs (principal); R41.3 Other amnesia; F17.218 Nicotine dependence, cigarettes, with other nicotine-induced disorders; I67.89 Other cerebrovascular disease; I70.90 Unspecified atherosclerosis; J34.89 Other specified disorders of nose and nasal sinuses; R91.8 Other nonspecific abnormal finding of lung field | CPT/HCPCS: 70450; 71271 ==

== ENCOUNTER 2024-05-17 00:51 | Observation (INO) | payer MEDICARE ==
[2024-05-17] MEDS ORDERED: Ondansetron ODT 4 MG TAB SL PRN (03:00)
[2024-05-17] MEDS ORDERED: Acetaminophen 325 MG TAB PO PRN ×2 (03:00→03:08)
[2024-05-17] MEDS ORDERED: Ondansetron PF 4 MG/2 ML Vial IVP PRN ×2 (03:00→03:08)
[2024-05-17] MEDS ORDERED: Nitroglycerin 0.4 MG TAB (25 Tab Bottle) SL PRN (03:08)
[2024-05-17] MEDS ORDERED: Ondansetron ODT 4 MG TAB PO PRN (03:08)
[2024-05-17] MEDS ORDERED: Acetaminophen 650 MG Suppository PR PRN (03:08)
[2024-05-17] MEDS ORDERED: Ketorolac Tromethamine 30 MG (1 mL) VIAL IVP PRN (03:08)
[2024-05-17 03:13] VITALS: BMI 25.2
[2024-05-17] MEDS ORDERED: Ipratropium/Albuterol 3 ML NEB NEB PRN (03:18)
[2024-05-17] MEDS ORDERED: ALPRAZolam 0.25 MG TAB PO PRN (03:44)
[2024-05-17 04:19] LABS: #Basophils Less than 0.03 10x3/uL (0.0-0.2); #Eosinophils Less than 0.03 10x3/uL (0.0-0.7); %Basophils 0.4 % (0.0-1.0); %Lymphocytes 14.2 % (21.0-51.0); %Monocytes 0.9 % (0.0-10.0); %Neutrophils 84.1 % (42.0-75.0); Hematocrit 43.6 % (42.0-52.0); Hemoglobin 14.9 g/dL (14.0-18.0); Mean Corpuscular HGB CONC 34.2 g/dL (32.0-36.0); Mean Corpuscular Hemoglobin 31.6 pg (27.0-31.0); Mean Corpuscular Volume 92.6 fL (78.0-98.0); Mean Platelet Volume 10.3 fL (7.4-10.4); Platelet Count 203 10x3/uL (130-400); RBC Distribution Width 11.6 % (11.5-14.5); Red Blood Cell (RBC) Count 4.71 mill/uL (4.70-6.10)
[2024-05-17 04:31] LABS: Anion Gap 15 mmol/L (10-20); BUN (Urea Nitrogen) 19 mg/dL (8.4-25.7); Calc. Creatinine Clearance 69 mL/min (70-130); Calcium 9.8 mg/dL (7.8-10.44); Carbon Dioxide 24 mmol/L (23-31); Chloride 105 mmol/L (98-107); Cholesterol 145 mg/dl (< 200 Desired); Estimated GFR 77; Glucose 173 mg/dL (83-110); HDL Cholesterol 48 mg/dL (>60 Neg Risk); LDL Cholesterol, Calculated 85 mg/dL; Magnesium 2.2 mg/dL (1.6-2.6); Potassium 3.9 mmol/L (3.5-5.1); Sodium 140 mmol/L (136-145); Triglycerides 60 mg/dL (Less than 150)
[2024-05-17] MEDS ORDERED: Melatonin 3 MG TAB PO PRN (04:31)
[2024-05-17 04:33] LABS: Troponin I Less than 0.010 ng/mL (< 0.028)
[2024-05-17 04:34] LABS: Hemoglobin A1c 5.8 % (4.0-6.0)
[2024-05-17] MEDS: Nicotine 14 MG PATCH TD SCH (04:59)
[2024-05-17] MEDS: cefTRIAXone\\ROCEPHIN 1 GM in Sodium Chloride 0.9% 100 ML IVPB SCH (05:02)
[2024-05-17 07:52] LABS: Troponin I Less than 0.010 ng/mL (< 0.028)
[2024-05-17] MEDS ORDERED: Regadenoson 0.4 MG/5 ML SYRINGE ONE (09:48)
[2024-05-17] MEDS: FLU (Fluad Triv) TS24-25 (65UP)/MF59C/PF 45 MCG/0.5 ML Syringe IM ONE (12:23)
[2024-05-17] MEDS: Aspirin 81 mg Enteric Coated Tablet PO SCH (12:26)
[2024-05-17] MEDS: Famotidine 20 MG TAB PO SCH (12:26)
[2024-05-17] MEDS: predniSONE 20 MG TAB PO SCH (12:26)
[2024-05-17 16:55] VITALS: BP 150/67; TEMP 98.9
[2024-05-17] MEDS ORDERED: Azithromycin 500 MG in Sodium Chloride 0.9% 250 ML 250 ML IVPB SCH (23:00)
[2024-05-18] MEDS ORDERED: Aspirin 81 mg Enteric Coated Tablet PO SCH (09:00)
== END 2024-05-17 19:29 | disposition home or self-care (01) ==
LOC: OBS 02:36
PROVIDERS: ADMIT Internal Medicine; ATTEND Internal Medicine
DX: I25.110 Atherosclerotic heart disease of native coronary artery with unstable angina pectoris (principal); R07.9 Chest pain, unspecified; I73.9 Peripheral vascular disease, unspecified; E78.5 Hyperlipidemia, unspecified; I10 Essential (primary) hypertension; J44.1 Chronic obstructive pulmonary disease with (acute) exacerbation; M54.9 Dorsalgia, unspecified; N40.0 Benign prostatic hyperplasia without lower urinary tract symptoms; G89.29 Other chronic pain; Z79.899 Other long term (current) drug therapy; Z79.02 Long term (current) use of antithrombotics/antiplatelets; Z88.0 Allergy status to penicillin; Z88.2 Allergy status to sulfonamides; Z88.1 Allergy status to other antibiotic agents; Z90.79 Acquired absence of other genital organ(s); Z95.5 Presence of coronary angioplasty implant and graft; F17.200 Nicotine dependence, unspecified, uncomplicated
CPT/HCPCS: 78452; 80048; 80061; 83036; 83735; 84443; 84484 ×2; 85025; 93017; 96374; A9502; G0378; J0696; J2785 ×2; 36415; J7512